=== PATIENT | female | born 1940 | race Caucasian/White ===

== ENCOUNTER 2019-11-16 08:56 | Outpatient (RCR) | payer OTHER, SELFPAY ==
[2019-11-18 06:49] LABS: LDL Cholesterol Direct 73 mg/dL
[2019-11-18 07:24] LABS: Vitamin D 25 Hydroxy 51.4 ng/mL
[2019-11-18 07:55] LABS: Cholesterol 126 mg/dL (0-200); HDL Direct 35 mg/dL; Triglycerides 83 mg/dL (<150)
== END 2020-02-14 23:59 | disposition home or self-care (01) ==
LOC: CAMBRIDGE 08:56
PROVIDERS: Visit Provider Student in an Organized Health Care Education/Training Program
DX: E78.5 Hyperlipidemia, unspecified (principal); E55.9 Vitamin D deficiency, unspecified
CPT/HCPCS: 36415; 80061; 82306

== ENCOUNTER 2020-04-15 22:39 | Inpatient (IN) | payer OTHER, MEDICAID, SELFPAY ==
--- NOTE | ~2020-04-15 | XR_ITS ---
EXAMINATION: XR elbow RT min 3V EXAM DATE: 04/17/2020 08:44 INDICATION: Initial encounter following injury, with pain of the right elbow. TECHNIQUE: Right elbow frontal, lateral with flexion, and oblique projections obtained and reviewed. There is no prior study for comparison. FINDINGS: Exam is limited from patient positioning. No definite acute fracture. There is sequela fro m prior right epicondylar injury. Can't evaluate for joint effusion. IMPRESSION: Limited exam without acute fracture line suspected. Reviewed, dictated and finalized at location A.
--- NOTE | ~2020-04-15 | XR_ITS ---
XR chest 1V portable DATE: 04/15/2020 23:09 INDICATION: Hip and shoulder fractures. TECHNIQUE: Portable AP chest on 04/15/2020 at 2259 hours COMPARISON: 03/29/2013 AP and lateral chest FINDINGS: Bilateral hyperinflation. Mild bilateral apical capping. No pulmonary infiltrate or consoli dation, pleural effusion or pulmonary vascular congestion or pneumothorax. No hilar or mediastinal en largement. Heart size is normal. There is aortic calcification, ectasia and mild unfolding. Right surgical neck humeral fracture. Osteopenia. Degenerative change and scoliosis of the thoracic spine IMPRESSION: Right surgical neck humeral fracture No active cardiac pulmonary disease Aortic atherosclerosis Reviewed, dictated and finalized at location A.
--- NOTE | ~2020-04-15 | XR_ITS ---
XR shoulder RT min 2V DATE: 04/15/2020 23:10 INDICATION: Fall. Right shoulder pain. TECHNIQUE: 2 views COMPARISON: None FINDINGS: There is a mildly superomedially displaced transverse surgical neck fracture of the right h umerus. . Normal alignment at the acromion clavicular and glenohumeral joints. Osteopenia. IMPRESSION: Right surgical neck humeral fracture Reviewed, dictated and finalized at location A.
--- NOTE | ~2020-04-15 | XR_ITS ---
XR ankle LT min 3V DATE: 04/15/2020 23:09 INDICATION: Lateral ankle pain, swelling following a fall TECHNIQUE: 3 views COMPARISON: None FINDINGS: There is mild to moderate lateral soft tissue swelling. There is evidence of a minimally di splaced recent fracture near the tip of the lateral malleolus . The medial and posterior malleoli appear intact. Plantar and posterior calcaneal enthesopathy. IMPRESSION: Lateral malleolar fracture Reviewed, dictated and finalized at location A. IMPRESSION: Lateral malleolar fracture
--- NOTE | ~2020-04-15 | XR_ITS ---
XR hip RT 2V w AP pelvis DATE: 04/15/2020 23:09 INDICATION: Fall. Right hip pain. TECHNIQUE: AP pelvis. AP, lateral, crosstable lateral views of right hip COMPARISON: None FINDINGS: There is an intra-articular fracture of the proximal right femur with minimal displacement, with varus angulation. Diffuse osteopenia. The pubic symphysis and sacroiliac joints are intact. No pelvic fracture or bone destruction is evide nt. 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 Transitional lumbosacral vertebra. IMPRESSION: Right intertrochanteric hip fracture Reviewed, dictated and finalized at location A.
--- NOTE | ~2020-04-15 | XR_ITS ---
XR surgery orthopedic DATE: 04/16/2020 10:24 INDICATION: ORIF right intertrochanteric hip fracture TECHNIQUE: Intraoperative spot C-arm images in AP and lateral projections 49.2 seconds fluoroscopy time [id number] COMPARISON: 04/15/2020 right FINDINGS: Compression screw device and intramedullary adalgisa are placed in the proximal right femur, pro viding near-anatomic position and alignment at the intertrochanteric hip fracture, with correction of varus angulation. IMPRESSION: Status post ORIF right intertrochanteric hip fracture Reviewed, dictated and finalized at Location A. Reviewed, dictated and finalized at location A.
[2020-04-15 22:40] VITALS: BP 155/73; PULSE 57; RESP 20; TEMP 36.8; O2SAT 100
--- NOTE | 2020-04-15 22:43 | ECG_ITS ---
Measurements Intervals [place] Rate: 59 P: OR: 0 QRS: 64 QRSD: 108 T: 51 QT: 442 QTc: 441 Interpretive Statements ECTOPIC ATRIAL BRADYCARDIA INCOMPLETE RIGHT BUNDLE BRANCH BLOCK BASELINE ARTIFACT- II, III, AVF, V2-V6 ABNORMAL ECG Electronically Signed On 04-16-2020 7:21:42 CDT by Oliver Watson D.O.
--- NOTE | 2020-04-15 22:47 | ED.FALL ---
HPI - Fall General Chief Complaint: Fall Stated Complaint: fall Time Seen by Provider: 04/15/20 22:43 History of Present Illness HPI Narrative: She tried to get up from her chair and her left ankle twisted under her. She then fell onto her right hip and outstretched right arm. She now has severe pain in the right hip associated with shortening and rotation. of the leg. She also has severe pain in the right shoulder and limited range of motion. In addition she has moderate pain in the left ankle. She did not hit her head or sustain any additional injuries in the fall. Related Data Home Medications Medication Instructions Recorded Confirmed donepezil 5 mg PO HS 04/15/20 04/15/20 ergocalciferol (vitamin D2) 1,250 mcg PO WEEKLY 04/15/20 04/15/20 [Vitamin D2] pravastatin 40 mg PO HS 04/15/20 04/15/20 sertraline 25 mg PO DAILY 04/15/20 04/15/20 Allergies Allergy/AdvReac Type Severity Reaction Status Date / Time No Known Allergies Allergy Unknown Verified 09/10/19 16:13 Review of Systems Review of Systems: All systems reviewed & are unremarkable except as noted in HPI and below Constitutional: Constitutional: Denies fever(s) ENT: Denies dizziness Cardiovascular: Cardiovascular: Denies chest pain Respiratory: Respiratory: Denies dyspnea Gastrointestinal: Gastrointestinal: Denies abdominal pain Musculoskeletal: Musculoskeletal: Denies back pain Neurologic: Denies numbness Hematologic/Lymphatic: Hematologic/Lymphatic: Denies easy bleeding and Denies easy bruising PMFSH Past Medical History Medical History Depression Hx of suicide attempt Hyperlipidemia Family History Family History Father Family history of malignant neoplasm Patient's father is Mother Family history of heart disease in male family member before age 55 Patient's mother is Social History Social History Smoking status: Never smoker Alcohol intake: unknown Substance use: never Gender identity (if verbalized by the patient): Female Spiritual care concerns: No Exam Const: General: no acute distress and alert Nutritional Appearance: well nourished Orientation/consciousness: patient oriented x3 HENMT: Head: normal to inspection Resp: Effort & Inspection: normal respiratory effort Auscultation: clear to auscultation bilaterally Cardio: Rate: regular rate Rhythm: regular rhythm Peripheral pulses: Peripheral pulses 2+ throughout Skin: General skin exam: normal color Wounds: no wounds Neuro: General: patient oriented x3, moves all extremities and CN's II-XI intact bilaterally Speech: normal speech Extrem: Other: Tenderness over left lateral ankle. Shortening and external rotation of right leg. tenderness and deformity of the right proximal humerus. Course Vital Signs Vital signs: Vital Signs Temperature 36.8 C 04/15/20 22:40 Pulse Rate 57 L 04/15/20 22:40 Respiratory Rate 20 04/15/20 22:40 Blood Pressure 155/73 H 04/15/20 22:40 Pulse Oximetry 100 04/15/20 22:40 Temperature 36.8 C 04/16/20 00:45 Pulse Rate 55 L 04/16/20 00:45 Respiratory Rate 18 04/16/20 00:45 Blood Pressure 103/51 L 04/16/20 00:45 Pulse Oximetry 98 04/16/20 00:45 MDM - Fall Medical Records Attestation: I reviewed the patient's medical records. Lab Data Attestation: I reviewed the patient's lab results. Result diagrams: 04/15/20 23:17 04/15/20 23:17 Labs: Lab Results 04/15/20 04/15/20 04/15/20 Range/Units 23:17 23:17 23:17 WBC 14.4 H (4.5-10.0) K/mm3 RBC 4.19 L (4.2-5.4) M/mm3 Hgb 12.8 (12.0-15.0) g/dL Hct 37.9 (37.0-47.0) % MCV 90.5 (80-100) fl MCH 30.5 (26-34) pg MCHC 33.8 (32-36) g/dl RDW 11.9 (11.5-14.5) % Plt Coun
[2020-04-15 23:28] VITALS: BP 138/73; PULSE 58; RESP 20; O2SAT 99
[2020-04-15 23:29] LABS: Basophils Absolute Auto 0.1 K/mm3 (0.0-0.1); Basophils Percent Auto 0.5 % (0.2-1.2); Eosinophils Absolute Auto 0.3 K/mm3 (0-0.3); Eosinophils Percent Auto 2.3 % (0-4.4); Hematocrit 37.9 % (37.0-47.0); Hemoglobin 12.8 g/dL (12.0-15.0); Immature Granulocyte Absolute 0.07 K/mm3 (0.00-0.031); Immature Granulocyte Percent A 0.5 % (0-0.5); Lymphocytes Absolute Auto 4.43 K/mm3 (0.9-3.2); Lymphocytes Percent Auto 30.9 % (18.3-44.2); Mean Corpuscular HGB Conc 33.8 g/dl (32-36); Mean Corpuscular Hemoglobin 30.5 pg (26-34); Mean Corpuscular Volume 90.5 fl (80-100); Mean Platelet Volume 10.2 fl (7.4-10.4); Monocytes Absolute Auto 0.8 K/mm3 (0.1-0.6); Monocytes Percent Auto 5.9 % (2.6-8.5); Neutrophils Absolute Auto 8.6 K/mm3 (1.3-6.7); Neutrophils Percent Auto 59.9 % (45.5-73.1); Platelet Count Result 289 k/mm3 (150-375); Red Blood Count 4.19 M/mm3 (4.2-5.4); Red Cell Distribution Width 11.9 % (11.5-14.5); White Blood Count 14.4 K/mm3 (4.5-10.0)
[2020-04-15 23:36] LABS: Add Urine Microscopic? YES; Appearance Urine Clear (Clear); Bilirubin Urine Negative (Negative); Blood Urine Negative (Negative); Color Urine Yellow (Yellow); Glucose Urine UA Negative (Negative); Ketones Urine Negative (Negative); Leukocyte Esterase Ur Negative LEU/UL (Negative); Mucus Urine Rare /lpf; Nitrate Urine Negative (Negative); Protein Urine Negative (Negative); RBC Urine 0-2 /hpf (0-2); Specific Grav Ur 1.021 (1.001-1.035); Squamous Epithelial Cell Urine Rare /hpf (Few); Urobilinogen Urine Negative mg/dL (<2.0); WBC Urine 0-3 /hpf
[2020-04-15 23:42] LABS: Blood Urea Nitrogen 15 mg/dL (7-17); Calcium 9.3 mg/dL (8.4-10.2); Carbon Dioxide 26 mmol/L (22-30); Chloride 99 mmol/L (98-107); Estimated Glomerular Filt Rate > 60; Glucose 110 mg/dL (65-105); Potassium 3.5 mmol/L (3.4-5.0); Sodium 137 mmol/L (137-145)
[2020-04-16] VITALS (15 sets, daily range): BP systolic 103–129; BP diastolic 51–73; PULSE 55–75; RESP 10–20; TEMP 36.6–37.1; O2SAT 93–100; BMI 24.3
--- NOTE | 2020-04-16 00:09 | PC.NURSE ---
call receive from pt son. Updates given
[2020-04-16 00:59] LABS: Prothrombin Time 12.9 Seconds (11.1-14.7)
[2020-04-16 01:00] LABS: Partial Thromboplastin Time 29.2 SECONDS (22.3-36.8)
[2020-04-16] MEDS: LACTATED RINGERS 1,000 ML 125 ML IV CONT (01:12)
--- NOTE | 2020-04-16 01:14 | ADMGEN ---
This patient, Nano Rojas, was admitted to 3 Med Surg Room 321-01. Patient/family oriented to hospital policies and general routines including ID bracelet, bed and alarms, visiting hours, pain management, procedures, bathroom and other care routines, personal items, smoking policy, room service/diet, and visiting hours. Valuables list has been completed. Information on how to activate the Rapid Response Team has been discussed. Patient/Family are encouraged to report perceived risks to care and to ask questions if they do not understand what they are told or what they should do.
[2020-04-16] MEDS: MORPHINE SULFATE 4 MG/ML INJ IV PUSH (02:00)
--- NOTE | 2020-04-16 02:06 | PM.IMHP ---
H&P: HPI History of Present Illness Chief complaint: Hip, humerus, and ankle fracture Narrative: This is a pleasant 79 year old female who is known to have depression with a history of a distant suicide attempt and who presented to the hospital after suffering an acute fall at home tonight. The patient is known to live alone and tonight she was watching television when she wanted to change the channel. She stood up and began to walk towards the television as she changes the channels manually. She remembers that she stopped walking and just froze for a moment before she fell. She doesn't believe that she passed out or had any seizure like activity. She doesn't know if she suffered any head trauma or exactly how she fell. She denies any shortness of breath or chest pain prior to falling. On arrival to the hospital the patient was found to have a right humeral fracture, right hip fracture and left ankle fracture. Currently she is only complaining of right hip pain. She had her left ankle splinted in the ER and Ortho has been consulted by ER provider. On further questioning she denies any focal neurological deficits, fevers, chills, cough, shortness of breath, chest pain, abdominal pain, dysuria, hematuria, diarrhea or other symptoms. Routine labs were obtained and were unremarkable other than leukocytosis. Review of Systems Review of Systems: All systems reviewed & are unremarkable except as noted in HPI and below PMFSH Past Medical History Medical History Dementia Depression Fracture of distal end of left fibula Fracture of proximal end of right humerus Hx of suicide attempt Hyperlipidemia Intertrochanteric fracture of right hip Surgical History Surgical History (Updated 04/16/20 @ 19:41 by Anish Cee MD) Hx of colonoscopy Family History Family History Father Family history of malignant neoplasm Patient's father is Mother Family history of heart disease in male family member before age 55 Patient's mother is Social History Social History Smoking status: Never smoker Alcohol intake: unknown Substance use: never Gender identity (if verbalized by the patient): Female Spiritual care concerns: No Meds Home Medications and Allergies Home Medications Medication Instructions Recorded Confirmed Type donepezil 5 mg PO HS 04/15/20 04/15/20 History ergocalciferol (vitamin D2) 1,250 mcg PO WEEKLY 04/15/20 04/15/20 History [Vitamin D2] pravastatin 40 mg PO HS 04/15/20 04/15/20 History sertraline 25 mg PO DAILY 04/15/20 04/15/20 History Allergies Allergy/AdvReac Type Severity Reaction Status Date / Time No Known Allergies Allergy Unknown Verified 09/10/19 16:13 Vital Signs Vital Signs - 24 hr 04/15/20 22:40 04/15/20 23:28 04/16/20 00:10 Temperature 36.8 C Pulse Rate 57 L 58 L 57 L Respiratory Rate 20 20 20 Blood Pressure 155/73 H 138/73 114/73 Pulse Oximetry 100 99 98 04/16/20 00:41 04/16/20 00:45 Temperature 36.8 C Pulse Rate 55 L 55 L Respiratory Rate 20 18 Blood Pressure 114/73 103/51 L Pulse Oximetry 100 98 Exam Const: General: cooperative, alert and awake Nutritional Appearance: well nourished Orientation/consciousness: patient oriented x3 HENMT: Head: normal to inspection General nose exam: Normal external nose present Face and sinus: normal facial exam Mouth: Yes Normal oral and palatal mucosa present and Yes oropharynx normal Eyes: Pupils: Equal, round and reactive pupils present EOM: EOMs intact bilaterally Neck: Neck: supple and no JVD Thyroid: thyroid normal Lymphatic: lymphadenopathy not noted Resp: Effort & Inspection: normal respiratory effort Auscultation: clear to auscultation bilaterally Cardio: Rate: regular rate Rhythm: regular rhy
[2020-04-16] MEDS: SODIUM CHLORIDE 0.9% IV 1,000 ML 75 ML IV CONT (02:42)
[2020-04-16] MEDS: DONEPEZIL HCL 5 MG TABLET PO ×2 (04:56→20:09)
[2020-04-16] MEDS: PRAVASTATIN SODIUM 20 MG TABLET 40 MG PO ×2 (04:56→20:09)
--- NOTE | 2020-04-16 08:04 | WPDANESEPP ---
Anes - Eval Pre Procedure Date/Time: 04/16/20 08:04 Surgeon: alexandre Preop Diagnosis: right IT fracture Pre Op Diagnosis: Hip, humerus, and ankle fracture Patient Data Age: 79 Gender: F Height: 1.68 m Weight: 68.2 kg Last Vital Signs Temp 36.6 C 04/16/20 06:00 Pulse 60 04/16/20 06:00 Resp 18 04/16/20 06:00 BP 109/62 04/16/20 06:00 Pulse Ox 100 04/16/20 06:00 Allergies Allergy/AdvReac Type Severity Reaction Status Date / Time No Known Allergies Allergy Unknown Verified 09/10/19 16:13 Home Medications Medication Instructions Recorded Confirmed Type donepezil 5 mg PO HS 04/15/20 04/15/20 History ergocalciferol (vitamin D2) 1,250 mcg PO WEEKLY 04/15/20 04/15/20 History [Vitamin D2] pravastatin 40 mg PO HS 04/15/20 04/15/20 History sertraline 25 mg PO DAILY 04/15/20 04/15/20 History Laboratory Tests 04/15/20 04/15/20 04/15/20 23:17 23:17 23:17 WBC 14.4 K/mm3 H K/mm3 (4.5-10.0) RBC 4.19 M/mm3 L M/mm3 (4.2-5.4) Hgb 12.8 g/dL g/dL (12.0-15.0) Hct 37.9 % % (37.0-47.0) MCV 90.5 fl fl (80-100) MCH 30.5 pg pg (26-34) MCHC 33.8 g/dl g/dl (32-36) RDW 11.9 % % (11.5-14.5) Plt Count 289 k/mm3 k/mm3 (150-375) MPV 10.2 fl fl (7.4-10.4) Immature Gran % (Auto) 0.5 % % (0-0.5) Neut % (Auto) 59.9 % % (45.5-73.1) Lymph % (Auto) 30.9 % % (18.3-44.2) [place] % (Auto) 5.9 % % (2.6-8.5) Eos % (Auto) 2.3 % % (0-4.4) Baso % (Auto) 0.5 % % (0.2-1.2) Lymph # (Auto) 4.43 K/mm3 H K/mm3 (0.9-3.2) [place] # (Auto) 0.8 K/mm3 H K/mm3 (0.1-0.6) Eos # (Auto) 0.3 K/mm3 K/mm3 (0-0.3) Baso # (Auto) 0.1 K/mm3 K/mm3 (0.0-0.1) Abs Immat Gran (auto) 0.07 K/mm3 H K/mm3 (0.00-0.031) Absolute Neuts (auto) 8.6 K/mm3 H K/mm3 (1.3-6.7) Absolute Nucleated RBC 0.0 K/mm3 K/mm3 (0.0-0.012) Nucleated RBC % 0.0 % % (0.0-0.2) PT 12.9 Seconds Seconds (11.1-14.7) INR 1.0 APTT 29.2 SECONDS SECONDS (22.3-36.8) Sodium 137 mmol/L mmol/L (137-145) Potassium 3.5 mmol/L mmol/L (3.4-5.0) Chloride 99 mmol/L mmol/L (98-107) Carbon Dioxide 26 mmol/L mmol/L (22-30) BUN 15 mg/dL mg/dL (7-17) Creatinine 0.80 mg/dL mg/dL (0.7-1.0) Estim Creat Clear Calc Not Reportable Estimated GFR > 60 (59 - ) Glucose 110 mg/dL H mg/dL (65-105) Calcium 9.3 mg/dL mg/dL (8.4-10.2) Urine Color Urine Appearance Urine pH Ur Specific [place] Urine Protein Urine Glucose (UA) Urine Ketones Ur Blood (Man) Urine Nitrate Urine Bilirubin Urine Urobilinogen Leukocyte Esterase Rfl Urine RBC Urine WBC Ur Squamous Epith Cells Urine Mucus 04/15/20 23:17 WBC RBC Hgb Hct MCV MCH MCHC RDW Plt Count MPV Immature Gran % (Auto) Neut % (Auto) Lymph % (Auto) [place] % (Auto) Eos % (Auto) Baso % (Auto) Lymph # (Auto) [place] # (Auto) Eos # (Auto) Baso # (Auto) Abs Immat Gran (auto) Absolute Neuts (auto) Absolute Nucleated RBC Nucleated RBC % PT INR APTT Sodium Potassium Chloride Carbon Dioxide BUN Creatinine Estim Creat Clear Calc Estimated GFR Glucose Calcium Urine Color Yellow (Yellow) Urine Appearance Clear (Clear) Urine pH 5.0 (5.0-9.0) Ur Specific [place] 1.021 (1.001-1.035) Urine Protein Negative
--- NOTE | 2020-04-16 08:13 | PM.CNOR ---
Assessment and Plan Assessment and plan (1) Intertrochanteric fracture of right hip: Qualifiers: Encounter type: initial encounter Fracture type: closed Fracture alignment: displaced Qualified Code(s): S72.141A - Displaced intertrochanteric fracture of right femur, initial encounter for closed fracture Code(s): S72.141A - Displaced intertrochanteric fracture of right femur, initial encounter for closed fracture Status: Acute Assessment and Plan: New patient evaluation for chief complaint fall with fractures of the right shoulder, right hip, left ankle. History, physical exam and radiographs reviewed with the patient. Discussed the condition, nature, etiology and course of natural history with the patient. Treatment options including surgical and nonoperative treatment were reviewed. Risks and benefits of each as well as alternatives reviewed. The patient's questions were answered. Conservative treatment ice, compression and elevation. Patient desires operative treatment for the hip fracture Discussed nonoperative and operative treatment options with the patient. Risks and benefits of each as well as alternatives were reviewed. All of the patient's questions were answered. The risks of surgery reviewed including but not limited to: Neurovascular damage, wound complication, infection, blood clot, pulmonary embolus, stroke, myocardial infarction, and anesthetic risks up to and including . Continued pain and possible dysfunction were explained. Specific risks of the procedure including later recurrence of deformity. No guarantees were offered. If hardware used, discussed risk of failure/ breakage and possible need for removal. If complications occur, the patient understands the need for further treatment, possible further surgery. Patient verbalizes understanding and wishes to proceed. PLAN: Right hip intramedullary nail with hip screw (2) Fracture of distal end of left fibula: Qualifiers: Encounter type: initial encounter Fracture type: closed Fracture morphology: other fracture Qualified Code(s): S82.832A - Other fracture of upper and lower end of left fibula, initial encounter for closed fracture Code(s): S82.832A - Other fracture of upper and lower end of left fibula, initial encounter for closed fracture Status: Acute Assessment and Plan: New patient evaluation status post injury. The history, physical exam and radiographs reviewed with the patient. Type of fracture discussed in detail . Treatment options including operative and non operative treatment reviewed . Risks, benefits and alternatives of each treatment discussed in detail . The patient has declined surgical treatment. Risks of treatment decision discussed in detail. Potential problems with displacement of the fracture, loss of alignment, nonunion, malunion and dysfunction discussed in detail. The patient's questions were answered. They verbalized understanding and agreement. Conservative treatment with immobilization, ice , compression and elevation. Ankle splinted in the emergency room. Continue with nonweightbearing. (3) Fracture of proximal end of right humerus: Qualifiers: Encounter type: initial encounter Fracture type: closed Fracture morphology: other fracture Fracture alignment: displaced Qualified Code(s): S42.291A - Other displaced fracture of upper end of right humerus, initial encounter for closed fracture Code(s): S42.201A - Unspecified fracture of upper end of right humerus, initial encounter for closed fracture Status: Acute Assessment and Plan: New patient evaluation status post injury. The history, physical exam and radiographs reviewed with the patient. Type of fracture discussed in detail . Treatment options including operative and non operative treatment reviewed . Risks, benefits and alternatives of each treatment discussed in detail . The pat
--- NOTE | 2020-04-16 08:53 | WPDANESEFPP ---
Anes - Eval Final PreProcedure Day of Procedure 04/16/20 08:53 Patient weight: normal Heart: regular rate and rhythm Lungs: clear to auscultation Airway: Mallampati scale class II Neurological: confused Last oral intake: >/= 8 hours ASA classification: III Emergent: yes Anesthetic plan: proceed Anesthesia type and monitoring: general LMA and standard monitoring Informed Consent: The patient's anesthetic plan and its attendant risks and benefits were discussed with the patient/family/POA. Questions were solicited and answers provided to the satisfaction of the patient/family/POA.
[2020-04-16] MEDS: LACTATED RINGERS 1,000 ML 30 ML IV CONT ×2 (09:15→10:41)
[2020-04-16] MEDS: ceFAZolin 2 GM/D5W 50 ML 2 GM/50 ML BAG IVPB (09:20)
[2020-04-16] MEDS: BUPIVACAINE/EPINEPHRINE 0.5% 30 ML VIAL INFILTRATE (09:56)
--- NOTE | 2020-04-16 10:46 | P.OP_ITS ---
Procedure Note - Detailed Date of procedure: 04/16/20 Pre-op diagnosis: Hip, humerus, and ankle fracture RT hip IT fx Post-op diagnosis: same Procedure performed: ERT Hip [facility] Description of procedure: Implants used: Aureliano natural nail 11.5 millimeter diameter 21.5 centimeter length nail, 125 deg. lag screw 10.5 millimeter x 90millimeter length. 35mm locking screw INDICATIONS: This is an 79-year-old -woman who fell sustaining a right hip intertrochanteric femur fracture. Indicated for reduction and intramedullary hip screw fixation, right hip. DESCRIPTION OF PROCEDURE: After informed consent the operative extremity was marked in the preoperative holding area. Patient received intravenous antibiotics. The patient was taken to the operative room, placed in the supine position, general anesthesia induced by the anesthesia team, and was placed on a fracture table with longitudinal traction applied to the right leg. The hip fracture was reduced to near anatomic position and verified with image intensification. A time-out was performed confirming the patient, site of the surgery and plan. The right lower extremity was prepped and draped sterilely from the knee to the iliac crest region using a ChloraPrep skin solution. Incision was made just proximal to greater trochanter down to the subcutaneous tissues. Hemostasis controlled with electrocautery. Blunt dissection through the fascia to the tip of the greater trochanter. A starter awl was placed at the tip of the greater trochanter into the medullary canal of the femur. This was checked with image intensification and was in good position. Intramedullary guide adalgisa positioned. A one-step hand reaming done proximally. Intramedullary canal was reamed with a 12.5 millimeter flexible reamer. Neck angle selected off of preoperative radiographs temp plating. 1 degree 11.5mm X 21.5cm Nail opened on the back table and assembled. This was then inserted over the guide adalgisa to the correct depth. Guide adalgisa removed. Lag screw was then placed with a stab incision over the lateral femur using a 10 blade knife. Blunt dissection down to the lateral side of the bone. Soft tissue protectors placed. Guide pin placed in the center ce nter position of the femoral head and measured. 90millimeter x 10.5 millimeter lag screw placed to correct depth and verified with image intensification. Traction released from the leg and compression of the fracture performed with the external compression device. Proximal locking screw placed. Distal locking of the nail then performed. Stab incision made lateral distal thigh. Blunt dissection down lateral side of the femur. Soft tissue protector placed. Femur drilled from lateral to medial through the distal nail. Distal femur measured and the appropriate size screw placed. Image intensification confirmed the placement through the locking hole. Final image intensification confirmed reduction of the fracture and placement of the hardware. Wounds then thoroughly irrigated with antibiotic solution. Fascia repaired with 0 Vicryl interrupted suture. Subcutaneous tissue repaired with 00 Vicryl interrupted suture and skin repaired with dee dee. Sterile dressings applied. Patient then awoke from anesthesia, extubated, taken to recovery room stable condition. All sponge, needle and instrument counts correct at the end the case. Implants: Aureliano 125 deg nail, 90mmX 10.5 mm lag screw, 35 x 5 mm locking screw Anesthesia: GLMA Surgeon: Marshall Chambers MD Pediatric Critical Care Nurse: ! chef's assistant Estimated blood loss (mL): 200 Drains: No Packing: No Pathology: none sent Complications: None Condition: stable Disposition: PACU
--- NOTE | 2020-04-16 14:27 | PM.IMPN ---
Progress Note: A&P Assessment and Plan (1) Intertrochanteric fracture of right hip: Qualifiers: Encounter type: initial encounter Fracture alignment: displaced Fracture type: closed Qualified Code(s): S72.141A - Displaced intertrochanteric fracture of right femur, initial encounter for closed fracture Code(s): S72.141A - Displaced intertrochanteric fracture of right femur, initial encounter for closed fracture Status: Acute Assessment and Plan: Hip and pelvis xray revealed an intra-articular fracture of the proximal right femur with minimal displacement and varus angulation. Dr. Chambers with ortho is on board and the patient opted for surgical management. She underwent reduction and intramedullary hip screw fixation today (04/16/2020) by Dr. Chambers. She tolerated the procedure well and is recovering appropriately. Her pain is well-controlled. Continue management per ortho including weight bearing status, DVT prophylaxis, and pain management She is on xarelto for DVT prophylaxis per ortho (2) Fracture of distal end of left fibula: Qualifiers: Encounter type: initial encounter Fracture morphology: other fracture Fracture type: closed Qualified Code(s): S82.832A - Other fracture of upper and lower end of left fibula, initial encounter for closed fracture Code(s): S82.832A - Other fracture of upper and lower end of left fibula, initial encounter for closed fracture Status: Acute Assessment and Plan: Ankle xray revealed a left lateral malleolar fracture. She discussed this with ortho and opted for non-operative management. Continue management per ortho Continue conservative treatment with immobilization, ice, compression and elevation Her left ankle was splinted in the emergency room She is nonweightbearing per ortho (3) Fracture of proximal end of right humerus: Qualifiers: Encounter type: initial encounter Fracture alignment: displaced Fracture morphology: other fracture Fracture type: closed Qualified Code(s): S42.291A - Other displaced fracture of upper end of right humerus, initial encounter for closed fracture Code(s): S42.201A - Unspecified fracture of upper end of right humerus, initial encounter for closed fracture Status: Acute Assessment and Plan: Shoulder xray revealed a mildly superomedially displaced transverse surgical neck fracture of the right humerus during her fall. She discussed this with ortho and opted for non-operative management. She reports that her pain is well-controlled. Continue management per ortho Continue conservative treatment with immobilization, ice, compression, and elevation Continue sling immobilization (4) Osteopenia determined by x-ray: Code(s): M85.80 - Other specified disorders of bone density and structure, unspecified site Status: Acute Assessment and Plan: Plain films reveal osteopenia. Continue PO vitamin D supplementation Will check vitamin D level She will benefit from further evaluation outpatient and DEXA scan if not already performed (5) Depression: Qualifiers: Active/Remission status: remission status unspecified Depression Type: major depressive disorder Major depression recurrence: unspecified whether recurrent Qualified Code(s): F32.9 - Major depressive disorder, single episode, unspecified Code(s): F32.9 - Major depressive disorder, single episode, unspecified Status: Chronic Assessment and Plan: Stable. Continue sertraline (6) Hyperlipidemia: Qualifiers: Hyperlipidemia type: unspecified Qualified Code(s): E78.5 - Hyperlipidemia, unspecified Code(s): E78.5 - Hyperlipidemia, unspecified Status: Chronic Assessment and Plan: Continue pravastatin (7) Dementia: Qualifiers: Dementia behavioral disturbance: without behavioral disturba
[2020-04-16] MEDS: DOCUSATE SODIUM 100 MG CAPSULE PO (17:34)
[2020-04-16] MEDS: FAMOTIDINE 20 MG TABLET PO (20:09)
[2020-04-17 02:00] VITALS: BP 109/60; PULSE 67; RESP 18; TEMP 37.2; O2SAT 97
[2020-04-17] MEDS: SODIUM CHLORIDE 0.9% IV 1,000 ML 75 ML IV CONT (04:08)
[2020-04-17 06:00] VITALS: BP 121/60; PULSE 66; RESP 18; TEMP 36.8; O2SAT 98
[2020-04-17 06:23] LABS: Basophils Percent Auto 0.1 % (0.2-1.2); Eosinophils Percent Auto 0.2 % (0-4.4); Hematocrit 26.6 % (37.0-47.0); Immature Granulocyte Absolute 0.05 K/mm3 (0.00-0.031); Immature Granulocyte Percent A 0.5 % (0-0.5); Lymphocytes Absolute Auto 1.59 K/mm3 (0.9-3.2); Lymphocytes Percent Auto 15.2 % (18.3-44.2); Mean Corpuscular HGB Conc 33.8 g/dl (32-36); Mean Corpuscular Hemoglobin 30.1 pg (26-34); Mean Platelet Volume 10.1 fl (7.4-10.4); Monocytes Percent Auto 9.2 % (2.6-8.5); Neutrophils Absolute Auto 7.9 K/mm3 (1.3-6.7); Neutrophils Percent Auto 74.8 % (45.5-73.1); Platelet Count Result 194 k/mm3 (150-375); Red Blood Count 2.99 M/mm3 (4.2-5.4); Red Cell Distribution Width 12.1 % (11.5-14.5); White Blood Count 10.5 K/mm3 (4.5-10.0)
[2020-04-17 06:56] LABS: Blood Urea Nitrogen 8 mg/dL (7-17); Calcium 8.2 mg/dL (8.4-10.2); Carbon Dioxide 26 mmol/L (22-30); Chloride 104 mmol/L (98-107); Estimated CRCL calculation 53 ml/min; Estimated Glomerular Filt Rate > 60; Glucose 113 mg/dL (65-105); Potassium 3.9 mmol/L (3.4-5.0); Sodium 135 mmol/L (137-145)
[2020-04-17 07:27] LABS: Vitamin D 25 Hydroxy 50.9 ng/mL
--- NOTE | 2020-04-17 08:00 | PM.PNORT ---
Progress Note: A&P Assessment and Plan (1) Intertrochanteric fracture of right hip: Qualifiers: Encounter type: subsequent encounter Fracture type: closed Fracture alignment: displaced Fracture healing: with routine healing Qualified Code(s): S72.141D - Displaced intertrochanteric fracture of right femur, subsequent encounter for closed fracture with routine healing Code(s): S72.141A - Displaced intertrochanteric fracture of right femur, initial encounter for closed fracture Status: Acute Assessment and Plan: Postoperative day 1. Right hip intramedullary nail. Patient confused this morning to place and time. Otherwise stable. PT/OT with weight-bearing as tolerated right leg. Will be difficult to mobilize secondary to nonweightbearing left leg and right arm. Pain control while trying to limit narcotics secondary to dementia. Will require placement. (2) Fracture of proximal end of right humerus: Qualifiers: Encounter type: subsequent encounter Fracture type: closed Fracture morphology: other fracture Fracture alignment: displaced Fracture healing: with routine healing Qualified Code(s): S42.291D - Other displaced fracture of upper end of right humerus, subsequent encounter for fracture with routine healing Code(s): S42.201A - Unspecified fracture of upper end of right humerus, initial encounter for closed fracture Status: Acute (3) Fracture of distal end of left fibula: Qualifiers: Encounter type: subsequent encounter Fracture type: closed Fracture morphology: other fracture Fracture healing: with routine healing Qualified Code(s): S82.832D - Other fracture of upper and lower end of left fibula, subsequent encounter for closed fracture with routine healing Code(s): S82.832A - Other fracture of upper and lower end of left fibula, initial encounter for closed fracture Status: Acute Subjective Subjective Date/Time Seen: 04/17/20 08:00 Patient awake and alert. Sitting up in bed. Confused about surgery yesterday, place and time. Exam Const: General: No confusion Orientation/consciousness: patient oriented x3 and No confusion HENMT: Head: normal to inspection, normocephalic and atraumatic Eyes: Conjunctivae: conjunctivae normal Sclera: sclerae normal Neck: Neck: supple and nontender Chest: Chest palpation & inspection: normal inspection of the chest Resp: Effort & Inspection: normal respiratory effort and no audible wheezes Cardio: Rate: regular rate Rhythm: regular rhythm GI: GI Palp: No abdominal tenderness and Yes Soft to palpation : General: Yes deferred Skin: General skin exam: no rashes or lesions noted Neuro: General: patient oriented x3 and No confusion Extrem: General: capillary refill normal Right upper extremity: shoulder/upper arm, elbow/forearm and Extremity exam: right hand Left upper extremity: normal to inspection Right lower extremity: hip/thigh, ankle ( able to actively flex and extend ankle) and foot; abnormal to inspection (Shortened and externally rotated leg) Left lower extremity: hip/thigh, lower leg, ankle (no calf tenderness) and foot Other: Right upper extremity: shoulder/upper arm abnormal to inspection other (Diffuse swelling), tenderness of the proximal humerus and abnormal ROM (Deferred secondary to fracture), elbow/forearm tenderness of the lateral epicondyle and of the radial head and abnormal ROM (Arm in sling); ROM abnormal and Extremity exam: right hand normal to inspection, neuromotor exam normal wrist extension normal, thumb opposition normal, thumb IP flexion normal and fingers 2-5 ABduction normal, neurosensory exam abnormal radial nerve sensory function normal, ulnar nerve sensory function normal, median nerve sensory function normal and digital nerve sensory function normal and vascular exam radial pulse present and normal capillary refill Left upper extremity: normal to inspection Right lowe
[2020-04-17] MEDS: FAMOTIDINE 20 MG TABLET PO ×2 (08:47→21:58)
[2020-04-17] MEDS: SERTRALINE HCL 25 MG TABLET PO (08:47)
[2020-04-17] MEDS: DOCUSATE SODIUM 100 MG CAPSULE PO ×2 (08:47→17:05)
[2020-04-17 09:59] VITALS: BMI 10.0
--- NOTE | 2020-04-17 09:59 | WPDANESPN ---
Anes - Prog Note Post-Op Date/Time: 04/17/20 09:59 Cardiovascular status: normal Respiratory status: normal Airway patency: baseline Mental status: baseline Post-Op hydration status: normal Vital Signs: Last Vital Signs Temp 36.8 C 04/17/20 06:00 Pulse 66 04/17/20 06:00 Resp 18 04/17/20 06:00 BP 121/60 04/17/20 06:00 Pulse Ox 98 04/17/20 06:00 I/O: Intake & Output 04/16/20 04/17/20 04/17/20 23:59 07:59 15:59 Intake Total 530 1399 Output Total 650 1650 Balance -120 -251 Laboratory Tests 04/17/20 06:10 04/17/20 06:10 04/17/20 04/17/20 04/17/20 06:10 06:10 06:10 WBC 10.5 H RBC 2.99 L Hgb 9.0 L D Hct 26.6 L MCV 89.0 MCH 30.1 MCHC 33.8 RDW 12.1 Plt Count 194 MPV 10.1 Immature Gran % (Auto) 0.5 Neut % (Auto) 74.8 H Lymph % (Auto) 15.2 L Jackson % (Auto) 9.2 H Eos % (Auto) 0.2 Baso % (Auto) 0.1 L Lymph # (Auto) 1.59 Jackson # (Auto) 1.0 H Eos # (Auto) 0.0 Baso # (Auto) 0.0 Abs Immat Gran (auto) 0.05 H Absolute Neuts (auto) 7.9 H Absolute Nucleated RBC 0.0 Nucleated RBC % 0.0 Sodium 135 L Potassium 3.9 Chloride 104 Carbon Dioxide 26 BUN 8 D Creatinine 0.70 Estim Creat Clear Calc 53 Estimated GFR > 60 Glucose 113 H Calcium 8.2 L Vitamin D 25-Hydroxy 50.9 Post-procedural complaints: none Patient Feedback: Patient satisfied with anesthetic care. Other Findings: pt still seems confused about what surgery we did, sitting at side of bed, talkative.
[2020-04-17 14:00] VITALS: BP 108/78; PULSE 73; RESP 18; TEMP 36.6; O2SAT 94
--- NOTE | 2020-04-17 15:40 | PM.IMPN ---
Progress Note: A&P Assessment and Plan (1) Intertrochanteric fracture of right hip: Qualifiers: Encounter type: subsequent encounter Fracture type: closed Fracture alignment: displaced Fracture healing: with routine healing Qualified Code(s): S72.141D - Displaced intertrochanteric fracture of right femur, subsequent encounter for closed fracture with routine healing Code(s): S72.141A - Displaced intertrochanteric fracture of right femur, initial encounter for closed fracture Status: Acute Assessment and Plan: Hip and pelvis xray revealed an intra-articular fracture of the proximal right femur with minimal displacement and varus angulation. Dr. Chambers with ortho is on board and the patient opted for surgical management. She underwent reduction and intramedullary hip screw fixation 04/16/[address] Chambers. She continues to work with therapy and her pain is well-controlled. Continue management per ortho including weight bearing status, DVT prophylaxis, and pain management She is on xarelto for DVT prophylaxis per ortho (2) Fracture of distal end of left fibula: Qualifiers: Encounter type: subsequent encounter Fracture type: closed Fracture morphology: other fracture Fracture healing: with routine healing Qualified Code(s): S82.832D - Other fracture of upper and lower end of left fibula, subsequent encounter for closed fracture with routine healing Code(s): S82.832A - Other fracture of upper and lower end of left fibula, initial encounter for closed fracture Status: Acute Assessment and Plan: Ankle xray revealed a left lateral malleolar fracture. She discussed this with ortho and opted for non-operative management. Continue management per ortho Continue conservative treatment with immobilization, ice, compression and elevation Her left ankle was splinted in the emergency room She is nonweightbearing per ortho (3) Fracture of proximal end of right humerus: Qualifiers: Encounter type: subsequent encounter Fracture type: closed Fracture morphology: other fracture Fracture alignment: displaced Fracture healing: with routine healing Qualified Code(s): S42.291D - Other displaced fracture of upper end of right humerus, subsequent encounter for fracture with routine healing Code(s): S42.201A - Unspecified fracture of upper end of right humerus, initial encounter for closed fracture Status: Acute Assessment and Plan: Shoulder xray revealed a mildly superomedially displaced transverse surgical neck fracture of the right humerus during her fall. She discussed this with ortho and opted for non-operative management. She reports that her pain is well-controlled. Continue management per ortho Continue conservative treatment with immobilization, ice, compression, and elevation Continue sling immobilization (4) Osteopenia determined by x-ray: Code(s): M85.80 - Other specified disorders of bone density and structure, unspecified site Status: Acute Assessment and Plan: Plain films reveal osteopenia. Vitamin D level was sufficient at 50.9. Continue PO vitamin D supplementation She will benefit from further evaluation outpatient and DEXA scan if not already performed (5) Depression: Qualifiers: Depression Type: major depressive disorder Major depression recurrence: unspecified whether recurrent Active/Remission status: remission status unspecified Qualified Code(s): F32.9 - Major depressive disorder, single episode, unspecified Code(s): F32.9 - Major depressive disorder, single episode, unspecified Status: Chronic Assessment and Plan: Stable. Continue sertraline (6) Hyperlipidemia: Qualifiers: Hyperlipidemia type: unspecified Qualified Code(s): E78.5 - Hyperlipidemia, unspecified Code(s): E78.5 - Hyperlipidemia, unspecified Status:
[2020-04-17] MEDS: RIVAROXABAN 10 MG TABLET PO (17:05)
[2020-04-17] MEDS: PRAVASTATIN SODIUM 20 MG TABLET 40 MG PO (21:58)
[2020-04-17] MEDS: DONEPEZIL HCL 5 MG TABLET PO (21:58)
[2020-04-17 22:00] VITALS: BP 125/52; PULSE 74; RESP 20; TEMP 36.8; O2SAT 96
--- NOTE | 2020-04-18 | ECHO_ITS ---
Patient Info Name: Nano Rojas Age: 79 years : 1940 Gender: Female Ht: 66 in Wt: 150 lbs BSA: 1.79 m2 HR: 75 bpm BP: 122 / 65 mmHg Heart Rhythm: Sinus Rhythm Technical Quality: Good Exam Date: 04/18/2020 9:31 AM Exam Location: [facility] Patient Status: Inpatient Admit Date: 04/16/2020 Staff Ordering Physician: Katherine Cantrell PA-C Senior Grant Writer: Dinh Meehan RDCS Attending Provider: Alma Armenta PA-C Referring Physician: Óscar SANCHEZ; Exam Type: CA echo doppler color flow Study Info Indications R01.1 - Cardiac murmur, unspecified Complete two-dimensional, color flow and Doppler transthoracic echocardiogram is performed. Strain analysis performed. History/Risk Factors Systolic murmur. Summary 1. Normal LV size, moderate LVH, sigmoid hypertrophy of left ventricle, hyperdynamic LV systolic function, ejection fraction more than 70%; normal diastolic function. Mild mitral annular calcification, trivial MR. Aortic valve sclerosis, mild aortic valve stenosis, aortic valve area 1.8 cm2, V max 2 m/sec, mean gradient 7 mmHg. Mild TR, moderate pulmonary hypertension, RVSP 51 mmHg. Left Ventricle Left ventricular chamber dimension is normal. Left ventricular systolic function is hyperdynamic, estimated at >70%. There is moderately increased left ventricular wall thickness. Left ventricular septal wall motion is normal. The left ventricular diastolic function is normal. Right Ventricle Right ventricular chamber dimension is normal. Right ventricular systolic function is normal. Left Atria Left atrial chamber dimension is normal. Right Atria Right atrial chamber dimension is normal. Aortic Valve The aortic valve is trileaflet. There is mild aortic valve sclerosis. There is mild aortic valve stenosis with a peak velocity of 201 cm/s, mean gradient of 7 mmHg, and aortic valve area of 1.8 cm2. There is no aortic valve regurgitation. Pulmonic Valve The pulmonic valve is not well visualized. There is no pulmonic regurgitation. Mitral Valve The mitral valve has normal leaflets. There is no mitral valve stenosis. There is trace mitral valve regurgitation. The mitral valve annulus is mildly calcified. Tricuspid Valve The tricuspid valve leaflets are normal. There is mild tricuspid valve regurgitation. Moderate pulmonary hypertension, estimated pulmonary arterial systolic pressure is 51 mmHg. Pericardium/Pleural The pericardium appears epicardial fat pad. There is no pericardial effusion. Aorta The aortic root size at the sinus of Valsalva is normal. The prox ascending aorta size is normal. Left Ventricular Outflow Tract Name Value Normal LVOT 2D LVOT Diameter 1.8 cm LVOT Doppler LVOT Peak Gradient 6 mmHg LVOT Mean Gradient 3 mmHg LVOT VTI 25 cm LVOT VTI/AV VTI Ratio 0.7 LVOT Stroke Volume 66 ml LVOT CO 4.9 l/min LVOT CI
[2020-04-18 06:00] VITALS: BP 122/65; PULSE 76; RESP 18; TEMP 36.2; O2SAT 95
[2020-04-18 06:00] LABS: Hematocrit 25.6 % (37.0-47.0); Hemoglobin 8.7 g/dL (12.0-15.0); Mean Corpuscular Hemoglobin 31.1 pg (26-34); Mean Corpuscular Volume 91.4 fl (80-100); Mean Platelet Volume 9.9 fl (7.4-10.4); Platelet Count Result 186 k/mm3 (150-375); Red Cell Distribution Width 12.2 % (11.5-14.5); White Blood Count 10.1 K/mm3 (4.5-10.0)
[2020-04-18 06:16] LABS: Alanine Aminotransferase 10 U/L (4-35); Albumin Level 3.2 g/dL (3.5-5.1); Alkaline Phosphatase 53 U/L (38-126); Aspartate Amino Transferase 28 U/L (14-36); Bilirubin,Total 0.5 mg/dL (0.2-1.3); Blood Urea Nitrogen 10 mg/dL (7-17); Calcium 8.1 mg/dL (8.4-10.2); Carbon Dioxide 29 mmol/L (22-30); Chloride 102 mmol/L (98-107); Estimated CRCL calculation 53 ml/min; Estimated Glomerular Filt Rate > 60; Glucose 107 mg/dL (65-105); Magnesium 1.8 mg/dL (1.6-2.3); Potassium 3.7 mmol/L (3.4-5.0); Sodium 138 mmol/L (137-145)
--- NOTE | 2020-04-18 08:02 | PM.PNORT ---
Progress Note: A&P Assessment and Plan (1) Intertrochanteric fracture of right hip: Qualifiers: Encounter type: subsequent encounter Fracture type: closed Fracture alignment: displaced Fracture healing: with routine healing Qualified Code(s): S72.141D - Displaced intertrochanteric fracture of right femur, subsequent encounter for closed fracture with routine healing Code(s): S72.141A - Displaced intertrochanteric fracture of right femur, initial encounter for closed fracture Status: Acute Assessment and Plan: Postoperative day 2. Right hip intramedullary nail. Patient less confused this morning. Oriented to self and place. Otherwise stable. PT/OT with weight-bearing as tolerated right leg. Will be difficult to mobilize secondary to nonweightbearing left leg and right arm. Pain control while trying to limit narcotics secondary to dementia. Will require placement. (2) Fracture of proximal end of right humerus: Qualifiers: Encounter type: subsequent encounter Fracture type: closed Fracture morphology: other fracture Fracture alignment: displaced Fracture healing: with routine healing Qualified Code(s): S42.291D - Other displaced fracture of upper end of right humerus, subsequent encounter for fracture with routine healing Code(s): S42.201A - Unspecified fracture of upper end of right humerus, initial encounter for closed fracture Status: Acute (3) Fracture of distal end of left fibula: Qualifiers: Encounter type: subsequent encounter Fracture type: closed Fracture morphology: other fracture Fracture healing: with routine healing Qualified Code(s): S82.832D - Other fracture of upper and lower end of left fibula, subsequent encounter for closed fracture with routine healing Code(s): S82.832A - Other fracture of upper and lower end of left fibula, initial encounter for closed fracture Status: Acute Subjective Subjective Date/Time Seen: 04/18/20 08:02 patient awake and alert. Less confusion. Oriented to person and place. Exam Const: General: cooperative, no acute distress, awake and confusion Orientation/consciousness: oriented to person, oriented to place and confusion HENMT: Head: normal to inspection, normocephalic and atraumatic Eyes: Conjunctivae: conjunctivae normal Sclera: sclerae normal Neck: Neck: supple and nontender Chest: Chest palpation & inspection: normal inspection of the chest Resp: Effort & Inspection: normal respiratory effort and no audible wheezes Cardio: Rate: regular rate Rhythm: regular rhythm GI: GI Palp: No abdominal tenderness and Yes Soft to palpation : General: Yes deferred Skin: General skin exam: no rashes or lesions noted Neuro: General: patient oriented x3 and No confusion Extrem: General: capillary refill normal Right upper extremity: shoulder/upper arm, elbow/forearm and Extremity exam: right hand Left upper extremity: normal to inspection Right lower extremity: hip/thigh, ankle ( able to actively flex and extend ankle) and foot; abnormal to inspection (Shortened and externally rotated leg) Left lower extremity: hip/thigh, lower leg, ankle (no calf tenderness) and foot Other: Right upper extremity: shoulder/upper arm abnormal to inspection other (Diffuse swelling), tenderness of the proximal humerus and abnormal ROM (Deferred secondary to fracture), elbow/forearm tenderness of the lateral epicondyle and of the radial head and abnormal ROM (Arm in sling); ROM abnormal and Extremity exam: right hand normal to inspection, neuromotor exam normal wrist extension normal, thumb opposition normal, thumb IP flexion normal and fingers 2-5 ABduction normal, neurosensory exam abnormal radial nerve sensory function normal, ulnar nerve sensory function normal, median nerve sensory function normal and digital nerve sensory function normal and vascular exam radial pulse present and normal capillary refill Left up
[2020-04-18] MEDS: FAMOTIDINE 20 MG TABLET PO ×2 (08:46→20:45)
[2020-04-18] MEDS: DOCUSATE SODIUM 100 MG CAPSULE PO ×2 (08:46→16:15)
[2020-04-18] MEDS: SERTRALINE HCL 25 MG TABLET PO (08:46)
--- NOTE | 2020-04-18 10:17 | PM.IMPN ---
Progress Note: A&P Assessment and Plan (1) Intertrochanteric fracture of right hip: Qualifiers: Encounter type: subsequent encounter Fracture alignment: displaced Fracture healing: with routine healing Fracture type: closed Qualified Code(s): S72.141D - Displaced intertrochanteric fracture of right femur, subsequent encounter for closed fracture with routine healing Code(s): S72.141A - Displaced intertrochanteric fracture of right femur, initial encounter for closed fracture Status: Acute Assessment and Plan: Hip and pelvis xray revealed an intra-articular fracture of the proximal right femur with minimal displacement and varus angulation. Orthopedics is on board. She underwent reduction and intramedullary hip screw fixation 04/16/[address] Chambers. She continues to work with therapy and her pain is well-controlled. She is post-op day 2 Continue management per ortho including weight bearing status, DVT prophylaxis, and pain management She is on xarelto for DVT prophylaxis per ortho Care coordination consult to determine placement for continued therapy at discharge (2) Fracture of distal end of left fibula: Qualifiers: Encounter type: subsequent encounter Fracture healing: with routine healing Fracture morphology: other fracture Fracture type: closed Qualified Code(s): S82.832D - Other fracture of upper and lower end of left fibula, subsequent encounter for closed fracture with routine healing Code(s): S82.832A - Other fracture of upper and lower end of left fibula, initial encounter for closed fracture Status: Acute Assessment and Plan: Ankle xray revealed a left lateral malleolar fracture. She discussed this with ortho and opted for non-operative management. Continue management per ortho Continue conservative treatment with immobilization, ice, compression and elevation Her left ankle was splinted in the emergency room She is non-weight bearing per ortho (3) Fracture of proximal end of right humerus: Qualifiers: Encounter type: subsequent encounter Fracture alignment: displaced Fracture healing: with routine healing Fracture morphology: other fracture Fracture type: closed Qualified Code(s): S42.291D - Other displaced fracture of upper end of right humerus, subsequent encounter for fracture with routine healing Code(s): S42.201A - Unspecified fracture of upper end of right humerus, initial encounter for closed fracture Status: Acute Assessment and Plan: Shoulder xray revealed a mildly superomedially displaced transverse surgical neck fracture of the right humerus during her fall. She discussed this with ortho and opted for non-operative management. Right elbow XR is negative for fracture or acute changes. She reports that her pain is well-controlled. Continue management per ortho Continue conservative treatment with immobilization, ice, compression, and elevation Continue sling immobilization (4) Osteopenia determined by x-ray: Code(s): M85.80 - Other specified disorders of bone density and structure, unspecified site Status: Acute Assessment and Plan: Plain films reveal osteopenia. Vitamin D level was sufficient at 50.9. Continue PO vitamin D supplementation She will benefit from further evaluation outpatient and DEXA scan if not already performed (5) Normocytic anemia: Code(s): D64.9 - Anemia, unspecified Status: Acute Assessment and Plan: At presentation, Hgb 12.8 and Hct 37.9. Levels declined post-operatively and today Hgb is 8.7 and Hct is 25.6. I suspect this is related to acute surgical blood loss. There are no obvious signs of bleeding or hematoma on exam, she denies any blood loss, and her vitals are stable. Continue to monitor H&H and transfuse as needed (6) Depression: Qualifiers: Active/Remission status: remission status unspecif
[2020-04-18 14:00] VITALS: BP 125/64; PULSE 72; RESP 16; TEMP 36.8; O2SAT 100
[2020-04-18] MEDS: RIVAROXABAN 10 MG TABLET PO (16:15)
[2020-04-18] MEDS: PRAVASTATIN SODIUM 20 MG TABLET 40 MG PO (20:45)
[2020-04-18] MEDS: DONEPEZIL HCL 5 MG TABLET PO (20:45)
[2020-04-18 22:00] VITALS: BP 128/69; PULSE 72; RESP 16; TEMP 37.1; O2SAT 97
[2020-04-19 06:00] VITALS: BP 135/79; PULSE 69; RESP 18; TEMP 36.9; O2SAT 97
[2020-04-19 06:00] LABS: Blood Urea Nitrogen 8 mg/dL (7-17); Calcium 8.3 mg/dL (8.4-10.2); Carbon Dioxide 28 mmol/L (22-30); Chloride 102 mmol/L (98-107); Estimated CRCL calculation 60 ml/min; Estimated Glomerular Filt Rate > 60; Glucose 105 mg/dL (65-105); Potassium 3.6 mmol/L (3.4-5.0); Sodium 136 mmol/L (137-145)
[2020-04-19 06:02] LABS: Basophils Absolute Auto 0.1 K/mm3 (0.0-0.1); Basophils Percent Auto 0.5 % (0.2-1.2); Eosinophils Absolute Auto 0.5 K/mm3 (0-0.3); Eosinophils Percent Auto 4.3 % (0-4.4); Hematocrit 25.6 % (37.0-47.0); Hemoglobin 8.6 g/dL (12.0-15.0); Immature Granulocyte Absolute 0.04 K/mm3 (0.00-0.031); Immature Granulocyte Percent A 0.4 % (0-0.5); Lymphocytes Absolute Auto 1.65 K/mm3 (0.9-3.2); Lymphocytes Percent Auto 15.9 % (18.3-44.2); Mean Corpuscular HGB Conc 33.6 g/dl (32-36); Mean Corpuscular Hemoglobin 30.6 pg (26-34); Mean Corpuscular Volume 91.1 fl (80-100); Mean Platelet Volume 10.1 fl (7.4-10.4); Monocytes Absolute Auto 0.8 K/mm3 (0.1-0.6); Monocytes Percent Auto 7.8 % (2.6-8.5); Neutrophils Absolute Auto 7.4 K/mm3 (1.3-6.7); Neutrophils Percent Auto 71.1 % (45.5-73.1); Platelet Count Result 228 k/mm3 (150-375); Red Blood Count 2.81 M/mm3 (4.2-5.4); Red Cell Distribution Width 12.1 % (11.5-14.5); White Blood Count 10.4 K/mm3 (4.5-10.0)
--- NOTE | 2020-04-19 07:54 | PM.PNORT ---
Progress Note: A&P Assessment and Plan (1) Intertrochanteric fracture of right hip: Qualifiers: Encounter type: subsequent encounter Fracture type: closed Fracture alignment: displaced Fracture healing: with routine healing Qualified Code(s): S72.141D - Displaced intertrochanteric fracture of right femur, subsequent encounter for closed fracture with routine healing Code(s): S72.141A - Displaced intertrochanteric fracture of right femur, initial encounter for closed fracture Status: Acute Assessment and Plan: Postoperative day 3. Right hip intramedullary nail. Oriented to self and place. Otherwise stable. PT/OT with weight-bearing as tolerated right leg. Will be difficult to mobilize secondary to nonweightbearing left leg and right arm. Pain control while trying to limit narcotics secondary to dementia. Will require placement. (2) Fracture of proximal end of right humerus: Qualifiers: Encounter type: subsequent encounter Fracture type: closed Fracture morphology: other fracture Fracture alignment: displaced Fracture healing: with routine healing Qualified Code(s): S42.291D - Other displaced fracture of upper end of right humerus, subsequent encounter for fracture with routine healing Code(s): S42.201A - Unspecified fracture of upper end of right humerus, initial encounter for closed fracture Status: Acute (3) Fracture of distal end of left fibula: Qualifiers: Encounter type: subsequent encounter Fracture type: closed Fracture morphology: other fracture Fracture healing: with routine healing Qualified Code(s): S82.832D - Other fracture of upper and lower end of left fibula, subsequent encounter for closed fracture with routine healing Code(s): S82.832A - Other fracture of upper and lower end of left fibula, initial encounter for closed fracture Status: Acute Assessment and Plan: Fracture boot for left ankle with weight-bearing as tolerated on left side. Subjective Subjective Date/Time Seen: 04/19/20 07:54 Resting comfortably. No new complaints. Exam Const: General: cooperative, no acute distress, awake and confusion Orientation/consciousness: oriented to person, oriented to place and confusion HENMT: Head: normal to inspection, normocephalic and atraumatic Eyes: Conjunctivae: conjunctivae normal Sclera: sclerae normal Neck: Neck: supple and nontender Chest: Chest palpation & inspection: normal inspection of the chest Resp: Effort & Inspection: normal respiratory effort and no audible wheezes Cardio: Rate: regular rate Rhythm: regular rhythm GI: GI Palp: No abdominal tenderness and Yes Soft to palpation : General: Yes deferred Skin: General skin exam: no rashes or lesions noted Neuro: General: patient oriented x3 and No confusion Extrem: General: capillary refill normal Right upper extremity: shoulder/upper arm, elbow/forearm and Extremity exam: right hand Left upper extremity: normal to inspection Right lower extremity: hip/thigh, ankle ( able to actively flex and extend ankle) and foot; abnormal to inspection (Shortened and externally rotated leg) Left lower extremity: hip/thigh, lower leg, ankle (no calf tenderness) and foot Other: Right hip incisions clean dry and intact. Right upper extremity: shoulder/upper arm abnormal to inspection other (Diffuse swelling), tenderness of the proximal humerus and abnormal ROM (Deferred secondary to fracture), elbow/forearm tenderness of the lateral epicondyle and of the radial head and abnormal ROM (Arm in sling); ROM abnormal and Extremity exam: right hand normal to inspection, neuromotor exam normal wrist extension normal, thumb opposition normal, thumb IP flexion normal and fingers 2-5 ABduction normal, neurosensory exam abnormal radial nerve sensory function normal, ulnar nerve sensory function normal, median nerve sensory function normal and digital nerve sensory functi
[2020-04-19 08:47] VITALS: O2SAT 96
[2020-04-19] MEDS: DOCUSATE SODIUM 100 MG CAPSULE PO ×2 (09:57→18:13)
[2020-04-19] MEDS: FAMOTIDINE 20 MG TABLET PO (09:57)
[2020-04-19] MEDS: SERTRALINE HCL 25 MG TABLET PO (09:57)
--- NOTE | 2020-04-19 10:16 | PC.NURSE ---
Patient is alert and oriented X4 at this time, but is forgetful (history of dementia). She was able to tell me her name, , place, month, year and why she is at the hospital.
--- NOTE | 2020-04-19 11:26 | PCOTNOTE ---
Attempted to see patient this am, however patient declined stating she was up in the chair for a while and just got back to bed. Pt stated, I'm really tired.
[2020-04-19 14:00] VITALS: BP 121/78; PULSE 78; RESP 16; TEMP 37; O2SAT 100
--- NOTE | 2020-04-21 17:06 | PM.DS ---
DS: Admitting Diagnosis Admitting Diagnosis Admitting Diagnosis: Displaced intertrochanteric fracture of right femur, initial encounter for closed fracture DS: Discharge Diagnosis Discharge Diagnosis (1) Intertrochanteric fracture of right hip: Qualifiers: Encounter type: subsequent encounter Fracture type: closed Fracture alignment: displaced Fracture healing: with routine healing Qualified Code(s): S72.141D - Displaced intertrochanteric fracture of right femur, subsequent encounter for closed fracture with routine healing Code(s): S72.141A - Displaced intertrochanteric fracture of right femur, initial encounter for closed fracture Status: Acute Assessment and Plan: She underwent reduction and intramedullary hip screw fixation on 04/16/[address] Chambers. She will continue PT/OT at [facility]. She will continue aspirin for 3 weeks. She will follow-up with Dr. Chambers in 2 weeks. (2) Fracture of distal end of left fibula: Qualifiers: Encounter type: subsequent encounter Fracture type: closed Fracture morphology: other fracture Fracture healing: with routine healing Qualified Code(s): S82.832D - Other fracture of upper and lower end of left fibula, subsequent encounter for closed fracture with routine healing Code(s): S82.832A - Other fracture of upper and lower end of left fibula, initial encounter for closed fracture Status: Acute Assessment and Plan: Ankle xray revealed a left lateral malleolar fracture. She discussed this with ortho and opted for non-operative management. She will continue wearing a boot and working with PT/OT at [place]. She will follow-up in 2 weeks. (3) Fracture of proximal end of right humerus: Qualifiers: Encounter type: subsequent encounter Fracture type: closed Fracture morphology: other fracture Fracture alignment: displaced Fracture healing: with routine healing Qualified Code(s): S42.291D - Other displaced fracture of upper end of right humerus, subsequent encounter for fracture with routine healing Code(s): S42.201A - Unspecified fracture of upper end of right humerus, initial encounter for closed fracture Status: Acute Assessment and Plan: Shoulder xray revealed a mildly superomedially displaced transverse surgical neck fracture of the right humerus during her fall. She discussed this with ortho and opted for non-operative management. She will continue sling immobilization and follow-up. (4) Osteopenia determined by x-ray: Code(s): M85.80 - Other specified disorders of bone density and structure, unspecified site Status: Acute Assessment and Plan: Plain films reveal osteopenia. Vitamin D level was sufficient at 50.9. She will benefit from further evaluation outpatient and DEXA scan if not already performed. (5) Normocytic anemia: Code(s): D64.9 - Anemia, unspecified Status: Acute Assessment and Plan: She developed anemia post-operatively, likely related to acute surgical blood loss. She had no active bleeding or evidence of hematoma. She remains stable and asymptomatic. (6) Depression: Qualifiers: Depression Type: major depressive disorder Major depression recurrence: unspecified whether recurrent Active/Remission status: remission status unspecified Qualified Code(s): F32.9 - Major depressive disorder, single episode, unspecified Code(s): F32.9 - Major depressive disorder, single episode, unspecified Status: Chronic Assessment and Plan: She endorsed depressed mood and was tearful on some occasions. She was very upset about having to leave her apartment at [facility] as she very much enjoys living there. She denies suicidal ideation. She will continue her sertraline. (7) Hyperlipidemia: Qualifiers: Hyperlipidemia type: unspecified Qualified Code(s): E78.5 - Hyperlipidemia, un
== END 2020-04-19 19:39 | DRG 481 ==
LOC: ANHED 23:21 → ANH3MEDSUR 04-16 02:19
PROVIDERS: Orthopaedic Surgery; Physician Assistant; Admitting Provider Family Medicine; Emergency Provider Emergency Medicine; PCP Student in an Organized Health Care Education/Training Program; Visit Provider Physician Assistant
PROC: 0QS636Z Reposition Right Upper Femur with Intramedullary Internal Fixation Device, Percutaneous Approach (ICD-10-PCS; CPT 27245; principal; 2020-04-16 09:30)
DX: S72.141A Displaced intertrochanteric fracture of right femur, initial encounter for closed fracture (principal); S42.211A Unspecified displaced fracture of surgical neck of right humerus, initial encounter for closed fracture; D62 Acute posthemorrhagic anemia; S82.832A Other fracture of upper and lower end of left fibula, initial encounter for closed fracture; M85.80 Other specified disorders of bone density and structure, unspecified site; D64.9 Anemia, unspecified; E78.5 Hyperlipidemia, unspecified; F32.9 Major depressive disorder, single episode, unspecified; F03.90 Unspecified dementia, unspecified severity, without behavioral disturbance, psychotic disturbance, mood disturbance, and anxiety; R01.1 Cardiac murmur, unspecified; W19.XXXA Unspecified fall, initial encounter
CPT/HCPCS: 36415; 71045; 73030; 73080; 73502; 73610; 80048; 80053; 81001; 82306; 83735; 85025; 85027; 85610; 85730; 93005; 93306; 97110; 97116; 97163; 97167; 97530; 97535; 99285; A4565; A9270; C1713; J0131; J0690; J1100; J2270; J2405; J2704; J3010; J7030; J7120; L2116

== ENCOUNTER 2020-04-29 22:51 | Emergency (ER) | payer OTHER, MEDICAID, SELFPAY ==
--- NOTE | ~2020-04-29 | XR_ITS ---
XR chest 2V DATE: 04/29/2020 23:25 INDICATION: Chest pressure, chest pain. TECHNIQUE: AP and lateral views COMPARISON: 04/15/2020 portable AP chest FINDINGS: Normal heart size. There is aortic calcification and mild unfolding. No hilar or mediastina l enlargement. No pulmonary infiltrate or consolidation, pleural effusion or pulmonary vascular congestion or pneumo thorax. There is a recent surgical neck fracture of the proximal right humerus. There is diffuse osteopenia. There is scoliosis and degenerative change of the thoracic spine. IMPRESSION: No active cardiopulmonary disease Right humeral surgical neck fracture Osteopenia Reviewed, dictated and finalized at location A.
--- NOTE | 2020-04-29 22:57 | ECG_ITS ---
Measurements Intervals [place] Rate: 77 P: 86 HI: 162 QRS: 55 QRSD: 102 T: 46 QT: 406 QTc: 460 Interpretive Statements SINUS RHYTHM INCOMPLETE RIGHT BUNDLE BRANCH BLOCK BASELINE ARTIFACT- I, II, III, AVL BORDERLINE ECG Electronically Signed On 04-30-2020 7:55:46 CDT by Oliver Watson D.O.
[2020-04-29 22:59] VITALS: BP 118/83; PULSE 82; RESP 15; TEMP 36.4; O2SAT 97
--- NOTE | 2020-04-29 23:05 | ED.CHESTPAIN ---
HPI - Chest Pain General Chief Complaint: Chest Pain Stated Complaint: CP History of Present Illness HPI narrative: Patient presents via EMS from the assisted for chest discomfort. She said is not a pain it is more of a pressure. She cannot give the number. No radiation. No shortness of breath nausea or diaphoresis. She has not had a before. She is not in any pain anywhere. She is in rehab for a fall with a left ankle fracture and a right shoulder fracture. She has some problem with her memory but is oriented here. She has not been sick. MD complaint: chest heaviness Onset (ago): hour(s) Timing of current episode: other (Much better okay) Prior episodes: No Related Data Home Medications Medication Instructions Recorded Confirmed donepezil 5 mg PO HS 04/15/20 04/15/20 ergocalciferol (vitamin D2) 1,250 mcg PO WEEKLY 04/15/20 04/15/20 [Vitamin D2] pravastatin 40 mg PO HS 04/15/20 04/15/20 sertraline 25 mg PO DAILY 04/15/20 04/15/20 Allergies Allergy/AdvReac Type Severity Reaction Status Date / Time No Known Allergies Allergy Unknown Verified 09/10/19 16:13 Review of Systems Review of Systems: Narrative: CONSTITUTIONAL: Denies fever, chills, or sweats. EYES: Denies visual changes, redness, or discharge. ENT: Denies rhinorrhea, congestion, sore throat, or otalgia. CARDIOVASCULAR: Denies chest pain, palpitations, or edema. RESPIRATORY: Denies cough or dyspnea. GASTROINTESTINAL: Denies abdominal pain, nausea, vomiting, or diarrhea. GENITOURINARY: Denies dysuria or hematuria. SKIN: Denies rash or itching. MUSCULOSKELETAL: Denies back pain, joint pain, or myalgia. NEUROLOGIC: Denies headache, numbness, or weakness. PSYCHIATRIC: Denies anxiety or depression. [facility] Past Medical History Medical History Dementia Depression Fracture of distal end of left fibula Fracture of proximal end of right humerus Hx of suicide attempt Hyperlipidemia Intertrochanteric fracture of right hip Surgical History Surgical History Hx of colonoscopy Social History Social History (Updated 04/29/20 @ 23:08 by Yana Frazier MD) Smoking status: Never smoker Alcohol intake: former Substance use: never Gender identity (if verbalized by the patient): Female Spiritual care concerns: No Exam Narrative: Exam Narrative: GENERAL: Well-appearing, well-nourished, and in no acute distress. Left leg is in a walking boot, and right arm is in sling. HEAD: Normocephalic, atraumatic. EYES: PERRLA and EOMI. ENT: Nares clear, no rhinorrhea or epistaxis. Mucous membranes moist. NECK: Supple. CHEST: Clear to auscultation. No respiratory distress. HEART: Regular rate and rhythm. No murmur heard. Normal peripheral pulses. ABDOMEN: Soft, nontender, nondistended, normal active bowel sounds. EXTREMITIES: Normal range of motion. No edema. SKIN: Warm, dry, no rash. NEURO: No focal deficits. Alert and oriented x3. PSYCH: Normal mood and affect. Const: General: no acute distress and alert Orientation/consciousness: patient oriented x3 Course Reevaluation(s) Reevaluation #1: The patient now feels fine, she cannot remember why she was here, she cannot remember where she is supposed to go back to. She said her right heel hurts. It has a tiny bit of redness. I elevated her right calf on a pillow and that helped. She is sad that her memory is getting bad. Date: 04/30/20 Time: 00:28 Vital Signs Vital signs: Vital Signs Temperature 97.5 F L 04/29/20 22:59 Pulse Rate 82 04/29/20 22:59 Respiratory Rate 15 04/29/20 22:59 Blood Pressure 118/83 04/29/20 22:59 Pulse Oximetry 97 04/29/20 22:59 Temperature 97.5 F L 04/29/20 22:59 Pulse Rate 68 04/29/20 23:57 Respiratory Rate 17 04/29/20 23:57 Blood Pressure 117/78 04/29/20 23:57 Pulse Oximetry 93 04/29/20 23:57 MDM - Chest Pain Medical Records
[2020-04-29 23:07] VITALS: PULSE 77; O2SAT 94
--- NOTE | 2020-04-29 23:07 | PC.NURSE ---
Assumed care of pt at this time. Report JOSAFAT Isaac
[2020-04-29 23:24] LABS: Basophils Absolute Auto 0.1 K/mm3 (0.0-0.1); Basophils Percent Auto 0.5 % (0.2-1.2); Eosinophils Absolute Auto 0.4 K/mm3 (0-0.3); Eosinophils Percent Auto 3.6 % (0-4.4); Hematocrit 29.1 % (37.0-47.0); Hemoglobin 9.8 g/dL (12.0-15.0); Immature Granulocyte Absolute 0.05 K/mm3 (0.00-0.031); Immature Granulocyte Percent A 0.5 % (0-0.5); Lymphocytes Absolute Auto 2.52 K/mm3 (0.9-3.2); Lymphocytes Percent Auto 24.9 % (18.3-44.2); Mean Corpuscular HGB Conc 33.7 g/dl (32-36); Mean Corpuscular Hemoglobin 30.8 pg (26-34); Mean Corpuscular Volume 91.5 fl (80-100); Mean Platelet Volume 8.6 fl (7.4-10.4); Monocytes Absolute Auto 0.6 K/mm3 (0.1-0.6); Monocytes Percent Auto 5.9 % (2.6-8.5); Neutrophils Absolute Auto 6.6 K/mm3 (1.3-6.7); Neutrophils Percent Auto 64.6 % (45.5-73.1); Platelet Count Result 473 k/mm3 (150-375); Red Blood Count 3.18 M/mm3 (4.2-5.4); Red Cell Distribution Width 13.3 % (11.5-14.5); White Blood Count 10.1 K/mm3 (4.5-10.0)
[2020-04-29 23:33] LABS: Partial Thromboplastin Time 29.8 SECONDS (22.3-36.8)
[2020-04-29] MEDS: BELLADONNA ALK/PHENOB ELIX 10 ML, MAG HYDROX/ALUMINUM HYD/SIMETH 30 ML, LIDOCAINE HCL 2... PO (23:40)
[2020-04-29 23:47] LABS: Blood Urea Nitrogen 11 mg/dL (7-17); Calcium 9.5 mg/dL (8.4-10.2); Carbon Dioxide 28 mmol/L (22-30); Chloride 102 mmol/L (98-107); Estimated CRCL calculation 63 ml/min; Estimated Glomerular Filt Rate > 60; Glucose 99 mg/dL (65-105); Potassium 3.2 mmol/L (3.4-5.0); Sodium 136 mmol/L (137-145)
[2020-04-29 23:57] VITALS: BP 117/78; PULSE 68; RESP 17; O2SAT 93
[2020-04-29 23:59] LABS: NT Pro B Type Natriuretic Pept 123 PG/ML (5-100); Troponin I < 0.012 ng/mL (0.000-0.034)
[2020-04-30 01:34] VITALS: BP 124/87; PULSE 94; RESP 15; O2SAT 97
== END 2020-04-30 01:34 ==
PROVIDERS: Emergency Provider Emergency Medicine; PCP Student in an Organized Health Care Education/Training Program
DX: R07.89 Other chest pain (principal); F03.90 Unspecified dementia, unspecified severity, without behavioral disturbance, psychotic disturbance, mood disturbance, and anxiety; E78.5 Hyperlipidemia, unspecified; F32.9 Major depressive disorder, single episode, unspecified; I45.10 Unspecified right bundle-branch block
CPT/HCPCS: 36415; 71046; 80048; 83880; 84484; 85025; 85610; 85730; 93005; 99284; A9270

== ENCOUNTER 2020-12-04 13:24 | Emergency (ER) | payer OTHER, MEDICAID, SELFPAY ==
--- NOTE | ~2020-12-04 | XR_ITS ---
EXAMINATION: XR chest 2V DATE: 12/04/2020 13:51 INDICATION: Chest pain. TECHNIQUE: Frontal and lateral views of the chest were obtained. COMPARISON: Chest 2 views 04/29/2020 FINDINGS: There is mild scarring at the lung apices. There is chronic blunting of left posterior cost ophrenic angle. No pneumothorax. The heart size is normal. There is an old healed fracture of proxima l right humerus. IMPRESSION: 1. Chronic blunting of left posterior costophrenic angle, consistent with scarring versus tiny pleura l effusion. 2. Mild scarring at the lung apices. Reviewed, dictated and finalized at location A. SMISSION BUILDER IMPRESSION: 1. Chronic blunting of left posterior costophrenic angle, consistent with scarr ing versus tiny pleural effusion. 2. Mild scarring at the lung apices.
[2020-12-04 13:35] VITALS: BP 127/78; PULSE 63; RESP 14; TEMP 36.3; O2SAT 100
--- NOTE | 2020-12-04 13:38 | ECG_ITS ---
Measurements Intervals [place] Rate: 65 P: -27 NM: 146 QRS: 15 QRSD: 90 T: 20 QT: 421 QTc: 438 Interpretive Statements SINUS RHYTHM INCOMPLETE RIGHT BUNDLE BRANCH BLOCK BASELINE ARTIFACT- I, II, III, AVR, AVL, AVF, V3, V6 BORDERLINE ECG Electronically Signed On 12-04-2020 13:39:54 TECHNICAL SERVICES MANAGER by Oliver Watson D.O.
[2020-12-04 13:49] LABS: Basophils Percent Auto 0.6 % (0.2-1.2); Eosinophils Absolute Auto 0.2 K/mm3 (0-0.3); Eosinophils Percent Auto 2.1 % (0-4.4); Hematocrit 37.8 % (37.0-47.0); Hemoglobin 12.5 g/dL (12.0-15.0); Immature Granulocyte Absolute 0.01 K/mm3 (0.00-0.031); Immature Granulocyte Percent A 0.1 % (0-0.5); Lymphocytes Absolute Auto 2.08 K/mm3 (0.9-3.2); Lymphocytes Percent Auto 29.5 % (18.3-44.2); Mean Corpuscular HGB Conc 33.1 g/dl (32-36); Mean Corpuscular Hemoglobin 30.3 pg (26-34); Mean Corpuscular Volume 91.5 fl (80-100); Mean Platelet Volume 9.8 fl (7.4-10.4); Monocytes Absolute Auto 0.5 K/mm3 (0.1-0.6); Monocytes Percent Auto 6.9 % (2.6-8.5); Neutrophils Absolute Auto 4.3 K/mm3 (1.3-6.7); Neutrophils Percent Auto 60.8 % (45.5-73.1); Platelet Count Result 254 k/mm3 (150-375); Red Blood Count 4.13 M/mm3 (4.2-5.4); Red Cell Distribution Width 11.9 % (11.5-14.5); White Blood Count 7.1 K/mm3 (4.5-10.0)
[2020-12-04 13:59] LABS: Prothrombin Time 13.6 Seconds (11.1-14.7)
[2020-12-04 14:00] LABS: Partial Thromboplastin Time 29.7 SECONDS (22.3-36.8)
[2020-12-04 14:01] LABS: Anion Gap 7 mmol/L (8-16); Blood Urea Nitrogen 13 mg/dL (7-17); Calcium 9.3 mg/dL (8.4-10.2); Carbon Dioxide 32 mmol/L (22-30); Chloride 100 mmol/L (98-107); Estimated CRCL calculation 41 ml/min; Estimated Glomerular Filt Rate > 60; Glucose 83 mg/dL (65-105); Sodium 139 mmol/L (137-145)
[2020-12-04 14:12] LABS: Troponin I < 0.012 ng/mL (0.000-0.034)
[2020-12-04 14:28] VITALS: BP 121/71; PULSE 60; RESP 18; O2SAT 99
--- NOTE | 2020-12-04 14:35 | PC.NURSE ---
according to triage note patient presented via ems with report of chest pressure. patient now states she fell at her senior care but has no injury or complaints at this time. does not remember saying that she had chest pain
[2020-12-04] MEDS: ASPIRIN 81 MG CHEWABLE TABLET 324 MG PO (15:03)
--- NOTE | 2020-12-04 15:26 | PC.NURSE ---
Both sets of blood cultures sent, LAC and RAC
--- NOTE | 2020-12-04 15:46 | ED.GENADULT ---
HPI - General Adult General Chief complaint: Chest Pain Stated complaint: cp Time Seen by Provider: 12/04/20 14:51 Source: patient History of Present Illness HPI narrative: Patient is a 80 y/o female complaining of left sided chest pain since about 9:00 AM this morning. She describes her pain as aching and feels like a punch in the chest. She rates her pain as 7/10. She states that she took Aspirin, which helped some with her pain. She state that her pain radiates to left shoulder. She has no SOB, sweating, vomiting or coughing. Related Data Home Medications Medication Instructions Recorded Confirmed donepezil 5 mg PO HS 04/15/20 04/15/20 pravastatin 40 mg PO HS 04/15/20 04/15/20 sertraline 25 mg PO DAILY 04/15/20 04/15/20 aspirin 325 mg tablet,delayed 325 mg PO QAM tablet 05/23/20 release docusate sodium 100 mg capsule 100 mg PO BID cap 05/23/20 ergocalciferol (vitamin D2) 1,250 1,250 mcg PO WEEKLY 05/23/20 mcg (50,000 unit) capsule Allergies Allergy/AdvReac Type Severity Reaction Status Date / Time No Known Allergies Allergy Unknown Verified 05/23/20 13:21 Review of Systems Constitutional: Constitutional: Denies chills, Denies fever(s), Denies headache(s) and Denies weakness Eyes: Eyes: Denies blurry vision ENT: Denies headache(s) and Denies neck pain Cardiovascular: Cardiovascular: Reports chest pain and Denies dyspnea Respiratory: Respiratory: Denies cough and Denies dyspnea Gastrointestinal: Gastrointestinal: Denies abdominal pain, Denies diarrhea, Denies nausea and Denies vomiting Genitourinary: Genitourinary: Denies hematuria and Denies dysuria Musculoskeletal: Musculoskeletal: Denies back pain and Denies neck pain Neurologic: Denies headache(s) and Denies weakness PMFSH Past Medical History Medical History Aftercare following surgery of the musculoskeletal system Dementia Depression Fracture of distal end of left fibula Fracture of proximal end of right humerus Hx of suicide attempt Hyperlipidemia Intertrochanteric fracture of right hip Surgical History Surgical History Hx of colonoscopy Family History Family History Father Family history of malignant neoplasm Patient's father is Mother Family history of heart disease in male family member before age 55 Patient's mother is Social History Social History Smoking status: Never smoker Alcohol intake: former Substance use: never Gender identity (if verbalized by the patient): Female Spiritual care concerns: No Exam Const: General: no acute distress and well developed Orientation/consciousness: oriented to person, oriented to place, oriented to time and patient oriented x3 HENMT: Head: normocephalic Ears: external ears normal General nose exam: Normal external nose present Eyes: General: appearance normal, both eyes and all related structures Conjunctivae: conjunctivae normal Neck: Neck: normal visual inspection and full ROM Chest: Chest palpation & inspection: normal inspection of the chest and no tenderness Resp: Effort & Inspection: normal respiratory effort Auscultation: clear to auscultation bilaterally Cardio: Rate: regular rate Rhythm: regular rhythm GI: GI Palp: No abdominal tenderness and Yes Soft to palpation Skin: General skin exam: normal color and turgor normal Neuro: General: oriented to person, oriented to place, oriented to time and patient oriented x3 Cognition (Neuro): normal cognition Extrem: General: normal to inspection, full ROM and no pedal edema Psych: Appearance: grossly normal Mental Status: mental status grossly normal Affect: normal affect Course Reevaluation(s) Reevaluation #1: Patient wants to leave [place]. She does no
[2020-12-04 16:17] VITALS: BP 145/75; PULSE 63; RESP 18; TEMP 37; O2SAT 100
[2020-12-04 16:20] VITALS: BP 145/75; PULSE 63; RESP 18; TEMP 37; O2SAT 100
== END 2020-12-04 16:26 | disposition left against medical advice (07) ==
PROVIDERS: Emergency Medicine; Emergency Provider Emergency Medicine; PCP Student in an Organized Health Care Education/Training Program
DX: R07.9 Chest pain, unspecified (principal); F03.90 Unspecified dementia, unspecified severity, without behavioral disturbance, psychotic disturbance, mood disturbance, and anxiety; F32.9 Major depressive disorder, single episode, unspecified; E78.5 Hyperlipidemia, unspecified; Z79.82 Long term (current) use of aspirin; I45.10 Unspecified right bundle-branch block
CPT/HCPCS: 36415; 71046; 80048; 84484; 85025; 85610; 85730; 93005; 99284; A9270

== ENCOUNTER 2021-05-07 04:33 | Emergency (ER) | payer OTHER, MEDICAID, SELFPAY ==
[2021-05-07] VITALS (7 sets, daily range): BP systolic 140–157; BP diastolic 79–85; PULSE 56–65; RESP 13–21; TEMP 36.3; O2SAT 97–100
--- NOTE | ~2021-05-07 | XR_ITS ---
XR chest 1V portable 05/07/2021 04:53 Indication: Chest pain and left arm pain Procedure: AP portable chest Comparison: Comparison to multiple prior studies sequentially, with oldest reviewed study dated 04/2013. Findings: Heart size normal. No focal air space disease, pulmonary edema, pleural effusion or suspect ed pneumothorax. There is apical pleural thickening/scarring. Impression: 1: No acute cardiopulmonary disease. Reviewed, dictated and finalized at location A. Impression: 1: No acute cardiopulmonary disease.
--- NOTE | 2021-05-07 04:39 | ECG_ITS ---
Measurements Intervals [place] Rate: 59 P: 30 NC: 161 QRS: 51 QRSD: 89 T: 34 QT: 445 QTc: 442 Interpretive Statements SINUS BRADYCARDIA INCOMPLETE RIGHT BUNDLE BRANCH BLOCK BASELINE ARTIFACT- V4-V5 BORDERLINE ECG Electronically Signed On 05-07-2021 5:50:30 CDT by Oliver Watson D.O.
[2021-05-07] MEDS: ASPIRIN 81 MG CHEWABLE TABLET 324 MG PO (04:52)
[2021-05-07 04:53] LABS: Basophils Absolute Auto 0.1 K/mm3 (0.0-0.1); Basophils Percent Auto 0.8 % (0.2-1.2); Eosinophils Absolute Auto 0.3 K/mm3 (0-0.3); Eosinophils Percent Auto 3.5 % (0-4.4); Hematocrit 37.2 % (37.0-47.0); Hemoglobin 12.4 g/dL (12.0-15.0); Immature Granulocyte Absolute 0.03 K/mm3 (0.00-0.031); Immature Granulocyte Percent A 0.4 % (0-0.5); Lymphocytes Absolute Auto 2.79 K/mm3 (0.9-3.2); Lymphocytes Percent Auto 38.5 % (18.3-44.2); Mean Corpuscular HGB Conc 33.3 g/dl (32-36); Mean Corpuscular Hemoglobin 30.2 pg (26-34); Mean Corpuscular Volume 90.5 fl (80-100); Mean Platelet Volume 9.7 fl (7.4-10.4); Monocytes Absolute Auto 0.6 K/mm3 (0.1-0.6); Monocytes Percent Auto 8.1 % (2.6-8.5); Neutrophils Absolute Auto 3.5 K/mm3 (1.3-6.7); Neutrophils Percent Auto 48.7 % (45.5-73.1); Platelet Count Result 237 k/mm3 (150-375); Red Blood Count 4.11 M/mm3 (4.2-5.4); Red Cell Distribution Width 11.8 % (11.5-14.5); White Blood Count 7.2 K/mm3 (4.5-10.0)
--- NOTE | 2021-05-07 05:00 | PC.NURSE ---
With patient history of falls and dementia, bed alarm placed on patient.
[2021-05-07 05:02] LABS: Alanine Aminotransferase 12 U/L (4-35); Albumin Level 4.2 g/dL (3.5-5.1); Alkaline Phosphatase 78 U/L (38-126); Anion Gap 9 mmol/L (8-16); Aspartate Amino Transferase 28 U/L (14-36); Bilirubin,Total 0.4 mg/dL (0.2-1.3); Blood Urea Nitrogen 7 mg/dL (7-17); Calcium 9.7 mg/dL (8.4-10.2); Carbon Dioxide 29 mmol/L (22-30); Chloride 104 mmol/L (98-107); Estimated Glomerular Filt Rate > 60; Glucose 89 mg/dL (65-105); Lipase 74 U/L (23-300); Prothrombin Time 13.4 Seconds (11.1-14.7); Sodium 142 mmol/L (137-145)
--- NOTE | 2021-05-07 05:02 | ED.GENADULT ---
HPI - General Adult General Chief complaint: Chest Pain Stated complaint: CP and Left arm numbness Time Seen by Provider: 05/07/21 04:38 History of Present Illness HPI narrative: Patient 80-year-old female who presents the emergency department with chief complaint of chest pain. The patient lives at a local fpc has history of dementia and reportedly it was having chest pain at the facility this morning patient upon arrival to the emergency department does not remember why she was brought to the emergency department and actually states that she really did want to cause any kind of fuss like this. The patient states that currently she denied having any chest pain and having shortness of breath reports that she has chronic pain in her shoulders from multiple orthopedic issues. Related Data Home Medications Medication Instructions Recorded Confirmed donepezil 5 mg PO HS 04/15/20 04/15/20 pravastatin 40 mg PO HS 04/15/20 04/15/20 sertraline 25 mg PO DAILY 04/15/20 04/15/20 aspirin 325 mg tablet,delayed 325 mg PO QAM tablet 05/23/20 release docusate sodium 100 mg capsule 100 mg PO BID cap 05/23/20 ergocalciferol (vitamin D2) 1,250 1,250 mcg PO WEEKLY 05/23/20 mcg (50,000 unit) capsule Allergies Allergy/AdvReac Type Severity Reaction Status Date / Time No Known Allergies Allergy Unknown Verified 05/07/21 04:47 Review of Systems Review of Systems: Narrative: A 10 system review of systems was completed on the patient and is negative except for what is stated in the HPI. Nursing and ancillary documentation was reviewed. [facility] Past Medical History Medical History Aftercare following surgery of the musculoskeletal system Dementia Depression Fracture of distal end of left fibula Fracture of proximal end of right humerus Hx of suicide attempt Hyperlipidemia Intertrochanteric fracture of right hip Surgical History Surgical History Hx of colonoscopy Family History Family History Father Family history of malignant neoplasm Patient's father is Mother Family history of heart disease in male family member before age 55 Patient's mother is Social History Social History Smoking status: Never smoker Alcohol intake: former Substance use: never Gender identity (if verbalized by the patient): Female Spiritual care concerns: No Exam Narrative: Exam Narrative: GENERAL: Well-appearing, well-nourished, and in no acute distress. HEAD: Normocephalic, atraumatic. EYES: PERRLA and EOMI. ENT: Nares clear, no rhinorrhea or epistaxis. Mucous membranes moist. NECK: Supple. CHEST: Clear to auscultation. No respiratory distress. HEART: Regular rate and rhythm. No murmur heard. Normal peripheral pulses. ABDOMEN: Soft, nontender, nondistended, normal active bowel sounds. EXTREMITIES: Normal range of motion. No edema. SKIN: Warm, dry, no rash. NEURO: No focal deficits. Alert and oriented x3. PSYCH: Normal mood and affect. Course Course Emergency Course: EKG shows a sinus rhythm with a rate of [address] elevation or ST depression noted Vital Signs Vital signs: Vital Signs Temperature 36.3 C L 05/07/21 04:31 Pulse Rate 65 05/07/21 04:31 Respiratory Rate 18 05/07/21 04:31 Blood Pressure 157/80 H 05/07/21 04:31 Pulse Oximetry 100 05/07/21 04:31 Temperature 36.3 C L 05/07/21 04:31 Pulse Rate 65 05/07/21 04:31 Respiratory Rate 18 05/07/21 04:31 Blood Pressure 157/80 H 05/07/21 04:31 Pulse Oximetry 100 05/07/21 04:31 Medical Decision Making Vital Signs Vital Signs: Vital Signs Temperature 36.3 C L 05/07/21 04:31 Pulse Rate 65 05/07/21 04:31 Respiratory Rate 18 05/07/21 0
[2021-05-07 05:14] LABS: Troponin I < 0.012 ng/mL (0.000-0.034)
--- NOTE | 2021-05-07 05:45 | PC.NURSE ---
0542 Report called to Maia patient's caregiver at [facility].
== END 2021-05-07 06:19 ==
PROVIDERS: Emergency Provider Emergency Medicine; PCP Student in an Organized Health Care Education/Training Program
DX: R07.89 Other chest pain (principal); F03.90 Unspecified dementia, unspecified severity, without behavioral disturbance, psychotic disturbance, mood disturbance, and anxiety; F32.9 Major depressive disorder, single episode, unspecified
CPT/HCPCS: 36415; 71045; 80053; 83690; 84484; 85025; 85610; 85730; 93005; 99284; A9270

== ENCOUNTER 2021-06-14 12:06 | Emergency (ER) | payer OTHER, MEDICAID, SELFPAY ==
[2021-06-14 12:12] VITALS: BP 161/72; PULSE 80; RESP 18; TEMP 36.7; O2SAT 100
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
[2021-06-14 13:50] LABS: Basophils Absolute Auto 0.1 K/mm3 (0.0-0.1); Basophils Percent Auto 0.6 % (0.2-1.2); Eosinophils Absolute Auto 0.1 K/mm3 (0-0.3); Eosinophils Percent Auto 1.2 % (0-4.4); Hematocrit 43.7 % (37.0-47.0); Hemoglobin 14.3 g/dL (12.0-15.0); Immature Granulocyte Absolute 0.02 K/mm3 (0.00-0.031); Immature Granulocyte Percent A 0.2 % (0-0.5); Lymphocytes Absolute Auto 2.01 K/mm3 (0.9-3.2); Lymphocytes Percent Auto 21.1 % (18.3-44.2); Mean Corpuscular HGB Conc 32.7 g/dl (32-36); Mean Corpuscular Hemoglobin 30.2 pg (26-34); Mean Corpuscular Volume 92.2 fl (80-100); Mean Platelet Volume 9.9 fl (7.4-10.4); Monocytes Absolute Auto 0.4 K/mm3 (0.1-0.6); Monocytes Percent Auto 4.5 % (2.6-8.5); Neutrophils Absolute Auto 6.9 K/mm3 (1.3-6.7); Neutrophils Percent Auto 72.4 % (45.5-73.1); Platelet Count Result 367 k/mm3 (150-375); Red Blood Count 4.74 M/mm3 (4.2-5.4); Red Cell Distribution Width 11.9 % (11.5-14.5); White Blood Count 9.5 K/mm3 (4.5-10.0)
[2021-06-14 14:08] LABS: Anion Gap 12 mmol/L (8-16); Blood Urea Nitrogen 8 mg/dL (7-17); Calcium 10.1 mg/dL (8.4-10.2); Carbon Dioxide 28 mmol/L (22-30); Chloride 100 mmol/L (98-107); Estimated CRCL calculation 52 ml/min; Estimated Glomerular Filt Rate > 60; Glucose 112 mg/dL (65-110); Sodium 140 mmol/L (137-145)
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
[2021-06-14 14:19] VITALS: BP 130/64; PULSE 66; RESP 16; TEMP 36.6; O2SAT 99
[2021-06-14 14:24] LABS: Add Urine Microscopic? YES; Appearance Urine Clear (Clear); Bilirubin Urine Negative (Negative); Blood Urine Negative (Negative); Color Urine Straw (Yellow); Glucose Urine UA Negative (Negative); Ketones Urine Negative (Negative); Leukocyte Esterase Ur Trace LEU/UL (Negative); Nitrate Urine Negative (Negative); Protein Urine Negative (Negative); Specific Grav Ur 1.006 (1.001-1.035); Urobilinogen Urine Negative mg/dL (<2.0)
--- NOTE | 2021-06-14 14:37 | PC.NURSE ---
INTRODUCED SELF TO PT AND ASKED HER WHAT BROUGHT HER TO THE ED? PT STATES I FELL THIS MORNING. MY L ANKLE TWISTED BECAUSE MY BONES ARE SO CRUMBLY. I HAVE A TITANIUM FARIHA IN MY R LEG FROM MY KNEE UP TO MY HIP AND I HAVE TITANIUM IN MY R ARM AFTER I FELL RECENTLY- MY BONES ARE SO CRUMBLY
[2021-06-14 15:30] VITALS: BP 152/68; PULSE 66; RESP 20; TEMP 36.7; O2SAT 100
== END 2021-06-14 15:35 ==
PROVIDERS: Emergency Medicine Emergency Medical Services; Emergency Provider Emergency Medicine; PCP Student in an Organized Health Care Education/Training Program
DX: F03.90 Unspecified dementia, unspecified severity, without behavioral disturbance, psychotic disturbance, mood disturbance, and anxiety (principal); E78.5 Hyperlipidemia, unspecified; Z79.82 Long term (current) use of aspirin; F32.9 Major depressive disorder, single episode, unspecified
CPT/HCPCS: 36415; 51701; 80048; 81001; 85025; 99283

== ENCOUNTER 2021-07-06 12:57 | Outpatient (CLI) | payer OTHER, MEDICAID, SELFPAY ==
--- NOTE | ~2021-07-06 | DEXA_ITS ---
Bone Density Report Name: Nano Rojas Age: 81 Sex: Female Ethnicity: White Date of : 1940 Indication: postmenopausal; height loss; prior fracture; Referring Provider: Curt, Moustapha Study: Bone densitometry was performed. Exam Date: July 06, 2021 Accession number: [id number] Bone Density: Region BMD T-score Z-score Classification AP Spine (L1-L4) 0.745 -2.7 0.0 Osteoporosis Femoral Neck (Left) 0.579 -2.4 -0.1 Osteopenia Total Hip (Left) 0.625 -2.6 -0.5 Osteoporosis World Health Organization criteria for BMD impression classify patients as: Normal (T-score at or above -1.0), Osteopenia (T-score between -1.0 and -2.5), or Osteoporosis (T-score at or below -2.5). 10-year Fracture Risk: FRAX not reported because: Some T-score for Spine Total or Hip Total or Femoral Neck at or below -2.5 Clinical Information Provided by Patient: Has had a low trauma fracture Patient maximum height was 68 No regular weight bearing exercise Onset of menses at age 13 Number of children 4 Impression: The patient has established osteoporosis, based on the Total Spine T-score and the existence of a prior fracture. The patient has risk factors, including: previous fracture. Discussion: HIGH RISK OF FRACTURE. BONE DENSITY IS UNDESIRABLY LOW AT ONE OR MORE SKELETAL SITES, CONSISTENT WITH POSTMENOPAUSAL OSTEOPOROSIS. This patient's lowest T-score, in a patient who has previously fractured, meets the World Health Organization's (WHO) criteria for severe osteoporosis. In untreated patients, the risk of osteoporotic fracture increases approximately two-fold for each 1.0 SD decrease in T-score. Low bone density is not the only risk factor for fracture; also consider factors such as patient's age, frailty or poor health, risk of falling, risk of injury, previous osteoporotic fracture, family history of osteoporosis, cigarette smoking, low body weight, etc. Not everyone with low bone mineral density has osteoporosis; osteomalacia and other metabolic bone disorders should also be considered. Patients who have osteoporosis should be evaluated for specific diseases and conditions (secondary causes) that may cause or contribute to bone loss. The [place] [employer] Endocrinologists (AACE) and National Osteoporosis Foundation (NOF) recommend pharmacologic intervention for all postmenopausal women whose T-score is in this range. The patient should follow a healthful lifestyle (good nutrition with adequate calcium and vitamin D, and appropriate weight-bearing exercise). Follow-Up: Consider a repeat BMD and Vertebral Fracture Assessment (VFA) exam in 2 years or sooner if medically necessary, to reassess this patient's status. Reported by: SUJATA on 07/06/2021 1:14:00 PM. Reviewed, dictated and finalized at location A. [place]
== END 2021-07-06 12:58 | disposition home or self-care (01) ==
LOC: ANHIMG 13:00
PROVIDERS: PCP Student in an Organized Health Care Education/Training Program; Visit Provider Student in an Organized Health Care Education/Training Program
DX: M81.0 Age-related osteoporosis without current pathological fracture (principal); M85.852 Other specified disorders of bone density and structure, left thigh
CPT/HCPCS: 77080

== ENCOUNTER 2021-07-19 21:59 | Observation (INO) | payer OTHER, MEDICAID, SELFPAY ==
[2021-07-19] VITALS (9 sets, daily range): BP systolic 89–94; BP diastolic 48–60; PULSE 76–86; RESP 17–26; TEMP 37.1; O2SAT 94–96
--- NOTE | ~2021-07-19 | XR_ITS ---
EXAMINATION: XR chest 2V EXAM DATE: 07/20/2021 02:07 INDICATION: weakness, transient alteration of awareness. TECHNIQUE: Frontal and lateral projections of the chest obtained and reviewed. Comparison is made to prior examination from 05/07/2021. FINDINGS: The lungs are hyperinflated which can be seen with chronic obstructive pulmonary disease ( a clinical diagnosis of functional impairment), but is not diagnostic of it. No confluent consolidati on, pneumothorax or pleural effusion suspected. Cardiomediastinal silhouette is normal. The bones are osteopenic. There is old right humeral neck fracture. There are bony degenerative changes. IMPRESSION: Hyperinflation. Reviewed, dictated and finalized at location A. IMPRESSION: Hyperinflation.
--- NOTE | 2021-07-19 22:08 | ECG_ITS ---
Measurements Intervals [place] Rate: 80 P: -6 MD: 142 QRS: 53 QRSD: 94 T: 28 QT: 439 QTc: 508 Interpretive Statements SINUS RHYTHM INCOMPLETE RIGHT BUNDLE BRANCH BLOCK PROLONGED QT INTERVAL ABNORMAL ECG Electronically Signed On 07-20-2021 6:24:36 CDT by Oliver Watson D.O.
[2021-07-19 22:27] LABS: Basophils Percent Auto 0.2 % (0.2-1.2); Hematocrit 39.7 % (37.0-47.0); Hemoglobin 13.5 g/dL (12.0-15.0); Immature Granulocyte Absolute 0.08 K/mm3 (0.00-0.031); Immature Granulocyte Percent A 0.6 % (0-0.5); Lymphocytes Percent Auto 2.1 % (18.3-44.2); Mean Corpuscular Hemoglobin 30.3 pg (26-34); Mean Corpuscular Volume 89.2 fl (80-100); Mean Platelet Volume 9.2 fl (7.4-10.4); Monocytes Absolute Auto 0.2 K/mm3 (0.1-0.6); Monocytes Percent Auto 1.2 % (2.6-8.5); Neutrophils Absolute Auto 13.5 K/mm3 (1.3-6.7); Neutrophils Percent Auto 95.9 % (45.5-73.1); Platelet Count Result 247 k/mm3 (150-375); Red Blood Count 4.45 M/mm3 (4.2-5.4); Red Cell Distribution Width 11.9 % (11.5-14.5); White Blood Count 14.1 K/mm3 (4.5-10.0)
[2021-07-19 22:39] LABS: Alanine Aminotransferase 129 U/L (4-35); Albumin Level 4.4 g/dL (3.5-5.1); Alkaline Phosphatase 89 U/L (38-126); Anion Gap 12 mmol/L (8-16); Aspartate Amino Transferase 205 U/L (14-36); Bilirubin,Total 0.7 mg/dL (0.2-1.3); Blood Urea Nitrogen 16 mg/dL (7-17); Calcium 9.6 mg/dL (8.4-10.2); Carbon Dioxide 22 mmol/L (22-30); Chloride 100 mmol/L (98-107); Estimated CRCL calculation 43 ml/min; Estimated Glomerular Filt Rate > 60; Glucose 135 mg/dL (65-110); Potassium 3.5 mmol/L (3.4-5.0); Sodium 134 mmol/L (137-145)
[2021-07-19 23:04] LABS: Add Urine Microscopic? YES; Appearance Urine Clear (Clear); Bacteria Urine Trace /hpf; Bilirubin Urine Negative (Negative); Blood Urine Negative (Negative); Color Urine Yellow (Yellow); Glucose Urine UA Negative (Negative); Ketones Urine Negative (Negative); Leukocyte Esterase Ur 2+ LEU/UL (Negative); Mucus Urine Rare /lpf; Nitrate Urine Negative (Negative); Protein Urine Negative (Negative); Specific Grav Ur 1.015 (1.001-1.035); Squamous Epithelial Cell Urine Occasional /hpf (Few); Urobilinogen Urine Negative mg/dL (<2.0)
[2021-07-19] MEDS: SODIUM CHLORIDE 0.9% IV 500 ML 999 ML IV CONT ×2 (23:09→23:46)
--- NOTE | 2021-07-19 23:17 | PC.NURSE ---
Report received and care of pt assumed at this time.
[2021-07-20] VITALS (34 sets, daily range): BP systolic 85–130; BP diastolic 46–74; PULSE 68–119; RESP 12–26; TEMP 36.2–36.9; O2SAT 82–100; BMI 23.8
--- NOTE | 2021-07-20 00:50 | ED.WEAKNESS ---
HPI - Weakness General Chief complaint: Weakness Stated complaint: ams - gateway yest change dementia status Time Seen by Provider: 07/19/21 22:42 Source: RN notes reviewed and other History of Present Illness HPI Narrative: Patient presents from nursing facility for decreased p.o. intake and weakness. Patient was referred to another ER for evaluation yesterday and was returned to the nursing facility the nurse fairly had continued concerns have referred patient to our ER for further evaluation. Reports she appears more weak and has had decreased appetite Related Data Home Medications Medication Instructions Recorded Confirmed donepezil 5 mg PO HS 04/15/20 07/19/21 pravastatin 40 mg PO HS 04/15/20 07/19/21 sertraline 25 mg PO DAILY 04/15/20 07/19/21 ergocalciferol (vitamin D2) 1,250 1,250 mcg PO WEEKLY 05/23/20 07/19/21 mcg (50,000 unit) capsule acetaminophen 500 mg PO QID PRN 07/19/21 07/19/21 Allergies Allergy/AdvReac Type Severity Reaction Status Date / Time No Known Allergies Allergy Unknown Verified 07/19/21 22:20 Review of Systems Review of Systems: ROS unobtainable: Yes unobtainable due to mental status (Patient has baseline dementia) [facility] Past Medical History Medical History (Updated 07/20/21 @ 05:18 by Sandrita Henriquez DO) Dementia Depression Fracture of distal end of left fibula Fracture of proximal end of right humerus Hx of suicide attempt Hyperlipidemia Osteoporosis Surgical History Surgical History (Updated 07/20/21 @ 05:17 by Sandrita Henriquez DO) Hx of colonoscopy Intertrochanteric fracture of right hip (03/2020) Intramedullary screw Family History Family History (Updated 07/20/21 @ 05:27 by Sandrita Henriquez DO) Father Family history of malignant neoplasm Mother Family history of heart disease in male family member before age 55 Social History Social History (Updated 07/20/21 @ 05:25 by Sandrita Henriquez DO) Social History: The patient lives in her own home until fall in March 2020 at which time she was discharged to [facility] nursing [facility] where she has remained. Code status: DNR/DNI with intent for comfort based care Smoking status: Never smoker Alcohol intake: former Substance use: never Substance use type: does not use Gender identity (if verbalized by the patient): Female Spiritual care concerns: No Exam Narrative: GENERAL: Well-appearing, well-nourished, and in no acute distress. HEAD: Normocephalic, atraumatic. EYES: PERRLA and EOMI. ENT: Nares clear, no rhinorrhea or epistaxis. Mucous membranes moist. NECK: Supple. No masses. No JVD CHEST: Clear to auscultation. No respiratory distress. No wheezes rales or rhonchi HEART: Regular rate and rhythm. No murmur heard. Normal peripheral pulses. ABDOMEN: Soft, nontender, nondistended, normal active bowel sounds. EXTREMITIES: Normal range of motion. No edema. SKIN: Warm, dry, no rash. NEURO: No focal deficits. Alert and oriented x2, PSYCH: Normal mood and affect. Course Reevaluation(s) Reevaluation #1: work up and plan for admisison discussed with patient she is comfortable with inpatient hospitalization and IV abx Date: 07/20/21 Time: 00:51 Reevaluation #2: Patient resting comfortably blood pressure appears to be stable and fluid responsive Case discussed with hospitalist team who will admit for further management Date: 07/20/21 Time: 03:53 Consultations Consultation #1: POA return phone call after patient was admitted. POA was comfortable with the admission plan IV antibiotics and if the patient requires they were comfortable with pursuing central line and pressors. Hospitalist team made aware of POA conversation Date: 07/20/21 Time: 05:50 Vital Signs Vital signs: Vital Signs Temperature 37.1 C 07/19/21 22:01 Pulse Rate 81 07/19/21 22:01 Respiratory Rate 17 07/19/21 22:01 Blood Pressure 90/48 L 07/19/21 22:01 Pulse Oximetry
[2021-07-20 01:04] LABS: Lactic Acid Reflex 1.7 mmol/L (0.7-2.1)
[2021-07-20] MEDS: SODIUM CHLORIDE 0.9% IV 1,000 ML 999 ML IV CONT (01:40)
[2021-07-20] MEDS: SODIUM CHLORIDE 0.9% IV 500 ML 999 ML IV CONT (03:47)
--- NOTE | 2021-07-20 04:34 | ADMGEN ---
This patient, Nano Rojas, was admitted to IMU Room 205-02 at 0430. Patient/family oriented to hospital policies and general routines including ID bracelet, bed and alarms, visiting hours, pain management, procedures, bathroom and other care routines, personal items, smoking policy, room service/diet, and visiting hours. Information on how to activate the Rapid Response Team has been discussed. Patient/Family are encouraged to report perceived risks to care and to ask questions if they do not understand what they are told or what they should do.
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
[2021-07-20] MEDS: SODIUM CHLORIDE 0.9% IV 1,000 ML 125 ML IV CONT ×3 (05:43→21:21)
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
[2021-07-20] MEDS: SERTRALINE HCL 25 MG TABLET PO (10:25)
[2021-07-20] MEDS: ACETAMINOPHEN 500 MG TABLET PO (17:52)
[2021-07-20] MEDS: DONEPEZIL HCL 5 MG TABLET PO (21:21)
[2021-07-21] VITALS (12 sets, daily range): BP systolic 129–142; BP diastolic 68–78; PULSE 56–84; RESP 16–18; TEMP 36.2–37.1; O2SAT 96–100
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
[2021-07-21 05:17] LABS: Hematocrit 32.5 % (37.0-47.0); Hemoglobin 10.9 g/dL (12.0-15.0); Mean Corpuscular HGB Conc 33.5 g/dl (32-36); Mean Corpuscular Volume 89.5 fl (80-100); Mean Platelet Volume 9.9 fl (7.4-10.4); Platelet Count Result 154 k/mm3 (150-375); Red Blood Count 3.63 M/mm3 (4.2-5.4); White Blood Count 4.8 K/mm3 (4.5-10.0)
[2021-07-21 05:34] LABS: Anion Gap 6 mmol/L (8-16); Blood Urea Nitrogen 9 mg/dL (7-17); Calcium 8.2 mg/dL (8.4-10.2); Carbon Dioxide 21 mmol/L (22-30); Chloride 106 mmol/L (98-107); Estimated CRCL calculation 66 ml/min; Estimated Glomerular Filt Rate > 60; Glucose 89 mg/dL (65-110); Potassium 3.1 mmol/L (3.4-5.0); Sodium 133 mmol/L (137-145)
[2021-07-21] MEDS: SODIUM CHLORIDE 0.9% IV 1,000 ML 125 ML IV CONT ×2 (05:41→21:01)
[2021-07-21] MEDS: SERTRALINE HCL 25 MG TABLET PO (08:35)
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
--- NOTE | 2021-07-21 17:39 | PC.NURSE ---
This patient, Nano Rojas, was transferred to [ [facility]] on 07/21/21 at 1716. Personal belongings sent with patient. Report given to [ [facility]]. Appropriate documentation sent with patient.
--- NOTE | 2021-07-21 18:16 | PC.NURSE ---
This patient, Nano Rojas, was received from IMU on 07/21/21 at 1816. Patient/family oriented to unit policies and routines
[2021-07-21] MEDS: DONEPEZIL HCL 5 MG TABLET PO (21:00)
[2021-07-22] VITALS: BP 129/69; PULSE 64; RESP 16; TEMP 36; O2SAT 95
[2021-07-22] MEDS: SODIUM CHLORIDE 0.9% IV 1,000 ML 125 ML IV CONT (05:16)
[2021-07-22 05:37] LABS: Basophils Percent Auto 0.4 % (0.2-1.2); Eosinophils Absolute Auto 0.2 K/mm3 (0-0.3); Eosinophils Percent Auto 2.8 % (0-4.4); Hematocrit 33.4 % (37.0-47.0); Hemoglobin 11.2 g/dL (12.0-15.0); Immature Granulocyte Absolute 0.02 K/mm3 (0.00-0.031); Immature Granulocyte Percent A 0.4 % (0-0.5); Lymphocytes Absolute Auto 1.23 K/mm3 (0.9-3.2); Lymphocytes Percent Auto 21.7 % (18.3-44.2); Mean Corpuscular HGB Conc 33.5 g/dl (32-36); Mean Corpuscular Hemoglobin 29.9 pg (26-34); Mean Corpuscular Volume 89.1 fl (80-100); Mean Platelet Volume 9.8 fl (7.4-10.4); Monocytes Absolute Auto 0.5 K/mm3 (0.1-0.6); Monocytes Percent Auto 8.8 % (2.6-8.5); Neutrophils Absolute Auto 3.7 K/mm3 (1.3-6.7); Neutrophils Percent Auto 65.9 % (45.5-73.1); Platelet Count Result 171 k/mm3 (150-375); Red Blood Count 3.75 M/mm3 (4.2-5.4); White Blood Count 5.7 K/mm3 (4.5-10.0)
[2021-07-22 05:55] LABS: Anion Gap 6 mmol/L (8-16); Blood Urea Nitrogen 6 mg/dL (7-17); Calcium 8.3 mg/dL (8.4-10.2); Carbon Dioxide 22 mmol/L (22-30); Chloride 110 mmol/L (98-107); Estimated CRCL calculation 56 ml/min; Estimated Glomerular Filt Rate > 60; Glucose 92 mg/dL (65-110); Potassium 3.1 mmol/L (3.4-5.0); Sodium 138 mmol/L (137-145)
[2021-07-22] MEDS: SERTRALINE HCL 25 MG TABLET PO (08:18)
--- NOTE | 2021-07-22 09:36 | PM.DS ---
DS: Admitting Diagnosis Admitting Diagnosis (1) Bacteriuria with pyuria: Code(s): R82.71 - Bacteriuria; R82.81 - Pyuria Status: Acute Assessment and Plan: The patient could possibly have a UTI that could be worsening her symptoms of dimension, resulting in her low blood pressures. Patient been placed on empiric antibiotic therapy with Rocephin. Urine cultures are pending. (2) Hypotension (arterial): Qualifiers: Hypotension type: unspecified hypotension type Qualified Code(s): I95.9 - Hypotension, unspecified Code(s): I95.9 - Hypotension, unspecified Status: Acute Assessment and Plan: Resolved after IV fluid hydration. Continue maintenance IV fluids. (3) Leukocytosis: Qualifiers: Leukocytosis type: unspecified Qualified Code(s): D72.829 - Elevated white blood cell count, unspecified Code(s): D72.829 - Elevated white blood cell count, unspecified Status: Acute Assessment and Plan: Likely due to his suspected UTI. Repeat CBC in a.m. DS: Discharge Diagnosis Discharge Diagnosis (1) Bacteriuria with pyuria: Code(s): R82.71 - Bacteriuria; R82.81 - Pyuria Status: Acute (2) Hypotension (arterial): Qualifiers: Hypotension type: unspecified hypotension type Qualified Code(s): I95.9 - Hypotension, unspecified Code(s): I95.9 - Hypotension, unspecified Status: Acute (3) Acute UTI: Code(s): N39.0 - Urinary tract infection, site not specified Status: Acute (4) Leukocytosis: Qualifiers: Leukocytosis type: unspecified Qualified Code(s): D72.829 - Elevated white blood cell count, unspecified Code(s): D72.829 - Elevated white blood cell count, unspecified Status: Acute DS: Summary Hospital Course Reason for hospitalization: [facility] Hospital Course: 81-year-old female admitted to the hospital with acute mental status change, bacteriuria with pyuria and hypertension. Patient responded appropriately to IV resuscitation and IV antibiotic therapy new. Urine culture did not grow any bacteria however patient was treated at both [facility] prior to admission here at [facility]. Patient has a significant past medical history of major depressive disorder with suicidal attempt spanning greater than 20 years. Who with her diagnosis of Alzheimer's dementia patient is having psychotic features and additionally has decompensation of her major depressive disorder reporting to staff that she wanted to harm herself. Crisis was called to evaluate patient for possible inpatient Geriatric Psychiatric treatment, although they declined. Additionally, I have called and spoken to her POA (her [id number]) and her son. We discussed patient's poor quality of life at this point to with her visit hallucinations and paranoid persecutory thoughts. They are in agreement to start Zyprexa. They understand that there are risks associated with this drug class including but not limited to . After review of care and current state it is decided that the risk outweighed the benefits and I have been authorized to proceed with treatment. I have contacted her collection administrator and reviewed plan of care with her. Patient is discharged back to [facility] in medically stable condition. She may require ongoing up titration of Zyprexa in the outpatient setting. Status at Discharge Functional status at discharge: independent ambulation Overall status at discharge: patient is back to baseline Time Spent with Patient Time attestation: Total time spent providing and/or coordinating discharge services: Time spent: Greater than 30 minutes DS: Data Data Completed and Pending Labs on day of discharge: Labs from last 24 hours 07/22/21 07/22/21 05:14 05:14 WBC 5.7 RBC 3.75 L Hgb 11.2 L Hct 33.4 L MCV 89.1 MCH 29.9 MCHC 33.5 RDW 12.0 Plt Count 171 MPV 9.8 Immature G
[2021-07-22 10:00] VITALS: BP 115/58; PULSE 51; RESP 14; TEMP 36.7; O2SAT 100
[2021-07-22] MEDS: OLANZapine 2.5 MG TABLET PO (12:10)
--- NOTE | 2021-08-15 07:54 | P.AMEND_ITS ---
Record Amendment Report Amendment The family requests addendum to the records under social history. The patient actually lived in her own home until September 2019 at which time she moved to [facility]. She was then hospitalized in March of 2020 after a fall and was discharged to [facility] for rehab. She returned to [facility] May 2020. The above addendum was made to the patient's record by Dr. Sandrita Henriquez on 08/15/2021 at 0727. Original addendum is on the History & Physical from account [id number].
== END 2021-07-22 13:12 ==
LOC: ANHED 07-20 03:52 → ANH2MED 07-22 08:49 → ANHIMU 07-24 13:50
PROVIDERS: Admitting Provider Internal Medicine; Emergency Provider Emergency Medicine; PCP Student in an Organized Health Care Education/Training Program; Visit Provider Hospitalist
DX: N39.0 Urinary tract infection, site not specified (principal); I95.9 Hypotension, unspecified; R82.71 Bacteriuria; D72.829 Elevated white blood cell count, unspecified; R41.82 Altered mental status, unspecified; F03.90 Unspecified dementia, unspecified severity, without behavioral disturbance, psychotic disturbance, mood disturbance, and anxiety; F32.9 Major depressive disorder, single episode, unspecified; E78.5 Hyperlipidemia, unspecified; Z66 Do not resuscitate
CPT/HCPCS: 36415; 51701; 71046; 80048; 80053; 81001; 83605; 85025; 85027; 87086; 93005; 96361; 96365; 99285; A9270; G0378; J0696; J7030; J7040

== ENCOUNTER 2021-07-23 20:01 | Emergency (ER) | payer OTHER, MEDICAID, SELFPAY ==
--- NOTE | ~2021-07-23 | XR_ITS ---
EXAMINATION: XR chest 2V DATE: 07/23/2021 22:44 INDICATION: Altered mental status. TECHNIQUE: Frontal and lateral views of the chest were obtained. COMPARISON: Chest 2 views 07/20/2021, CT abdomen and pelvis 07/23/2021 FINDINGS: There is mild scarring at the lung apices. There is mild atelectasis in the lower lung zone s. There are small pleural effusions. No pneumothorax. The heart size is normal. There is a healing/h ealed fracture of proximal right humerus. IMPRESSION: 1. Stable small pleural effusions. 2. Mild atelectasis in the lower lung zones and mild scarring at the lung apices. Reviewed, dictated and finalized at location A. IMPRESSION: 1. Stable small pleural effusions. 2. Mild atelectasis in the lower lung zones and mild scarring at the lung apice s.
--- NOTE | ~2021-07-23 | CT_ITS ---
EXAMINATION: CT abdomen pelvis w con DATE: 07/23/2021 22:43 INDICATION: Generalized abdominal pain. TECHNIQUE: Computed tomography (CT) of the abdomen and pelvis was performed with 100 mL Omnipaque 350 intravenous contrast. Automated exposure control and iterative reconstruction technique were employe d. The dose-length product was 355.49 mGy-cm. COMPARISON: None. FINDINGS: The visualized portions of the lung bases demonstrate mild atelectasis. There are small ple ural effusions. There are small bilateral posterior diaphragmatic hernias containing fat. The heart s ize is normal. No pericardial effusion. The liver is normal. There is a gallstone in the gallbladder, which is normal in size. Calcifications in the spleen are consistent with old granulomatous disease. The pancreas and adrenal glands are normal. There are cysts in the kidneys measuring up to 3.5 cm on the right. There is diverticulosis of the colon without evidence of diverticulitis. The appendix is not visualized. There are no pathologically enlarged lymph nodes. There is no free intraperitoneal fl uid. There is a lipoma in the right iliopsoas muscle. There is internal fixation of proximal right fe mur. There is lumbar dextrocurvature and severe spondylosis. IMPRESSION: 1. Small pleural effusions. 2. Cholelithiasis. No evidence of acute cholecystitis. Reviewed, dictated and finalized at location A.
[2021-07-23 20:00] VITALS: BP 146/81; PULSE 72; RESP 18; TEMP 37.4; O2SAT 97
--- NOTE | 2021-07-23 21:20 | ED.GENADULT ---
HPI - General Adult General Chief complaint: Altered Mental Status Stated complaint: confusion Time Seen by Provider: 07/23/21 21:01 History of Present Illness HPI narrative: Patient is an 81-year-old female who presents ER with increased confusion. Patient has known history of dementia and takes donepezil. At this time patient only complains of lower abdominal pain bilateral lower quadrants left being worse than the right. Denies radiation of the pain. Denies urinary symptoms. Related Data Home Medications Medication Instructions Recorded Confirmed donepezil 5 mg PO HS 04/15/20 07/19/21 pravastatin 40 mg PO HS 04/15/20 07/19/21 sertraline 25 mg PO DAILY 04/15/20 07/19/21 ergocalciferol (vitamin D2) 1,250 1,250 mcg PO WEEKLY 05/23/20 07/19/21 mcg (50,000 unit) capsule acetaminophen 500 mg PO QID PRN 07/19/21 07/19/21 olanzapine mg 07/23/21 Allergies Allergy/AdvReac Type Severity Reaction Status Date / Time No Known Allergies Allergy Unknown Verified 07/23/21 20:16 Review of Systems Review of Systems: ROS unobtainable: Yes unobtainable due to mental status PMFSH Past Medical History Medical History (Updated 07/24/21 @ 04:16 by Anand Holder MD) Dementia Depression Fracture of distal end of left fibula Fracture of proximal end of right humerus Hx of suicide attempt Hyperlipidemia Osteoporosis Surgical History Surgical History (Updated 07/20/21 @ 05:17 by Sandrita Henriquez DO) Hx of colonoscopy Intertrochanteric fracture of right hip (03/2020) Intramedullary screw Family History Family History (Updated 07/20/21 @ 05:27 by Sandrita Henriquez DO) Father Family history of malignant neoplasm Mother Family history of heart disease in male family member before age 55 Social History Social History Social History: The patient lives in her own home until fall in March 2020 at which time she was discharged to longterm facility for rehab and then transition to [facility]. Code status: DNR/DNI with intent for comfort based care but the family would be okay with central line, pressors and or BiPAP if needed. Smoking status: Never smoker Alcohol intake: former Substance use: never Substance use type: does not use Gender identity (if verbalized by the patient): Female Spiritual care concerns: No Exam Narrative: GENERAL: Well-appearing, well-nourished, and in no acute distress. HEAD: Normocephalic, atraumatic. ENT: Mucous membranes moist. CHEST: Clear to auscultation. No respiratory distress. HEART: Regular rate and rhythm. Normal peripheral pulses. ABDOMEN: Soft, moderate tenderness to palpation bilateral lower quadrants left greater than right without guarding, nondistended. EXTREMITIES: Normal range of motion. No edema. SKIN: Warm, dry, no rash. NEURO: Alert and oriented x1. Course Course Emergency Course: Patient seems to be at normal baseline as she is chronically demented. No evidence of infection. Patient recently discharged from the hospital. She has been treated for UTI recently is also been evaluated a [facility]. Patient's potassium has been replaced will prescribe outpatient potassium and recommend follow-up with the [facility] physician. Vital Signs Vital signs: Vital Signs Temperature 99.3 F 07/23/21 20:00 Pulse Rate 72 07/23/21 20:00 Respiratory Rate 18 07/23/21 20:00 Blood Pressure 146/81 H 07/23/21 20:00 Pulse Oximetry 97 07/23/21 20:00 Temperature 99.3 F 07/23/21 20:00 Pulse Rate 62 07/24/21 03:04 Respiratory Rate 18 07/24/21 03:04 Blood Pressure 126/66 07/24/21 03:04 Pulse Oximetry 96 07/24/21 03:04 Medical Decision Making Vital Signs Vital Signs: Vital Signs Temperature 99.3 F 07/23/21 20:00 Pulse Rate 72 07/23/21 20:00 Respiratory Rate 18 07/23/21 20:00 Blood Pressure 146/81 H 07/23/21
[2021-07-23 22:07] LABS: Basophils Percent Auto 0.4 % (0.2-1.2); Eosinophils Absolute Auto 0.2 K/mm3 (0-0.3); Eosinophils Percent Auto 3.1 % (0-4.4); Hematocrit 33.9 % (37.0-47.0); Hemoglobin 11.3 g/dL (12.0-15.0); Immature Granulocyte Absolute 0.01 K/mm3 (0.00-0.031); Immature Granulocyte Percent A 0.1 % (0-0.5); Lymphocytes Absolute Auto 1.97 K/mm3 (0.9-3.2); Lymphocytes Percent Auto 28.8 % (18.3-44.2); Mean Corpuscular HGB Conc 33.3 g/dl (32-36); Mean Corpuscular Hemoglobin 29.5 pg (26-34); Mean Corpuscular Volume 88.5 fl (80-100); Mean Platelet Volume 9.8 fl (7.4-10.4); Monocytes Absolute Auto 0.6 K/mm3 (0.1-0.6); Monocytes Percent Auto 8.6 % (2.6-8.5); Platelet Count Result 227 k/mm3 (150-375); Red Blood Count 3.83 M/mm3 (4.2-5.4); Red Cell Distribution Width 11.9 % (11.5-14.5); White Blood Count 6.8 K/mm3 (4.5-10.0)
[2021-07-23 22:14] LABS: Add Urine Microscopic? NO; Appearance Urine Clear (Clear); Bilirubin Urine Negative (Negative); Blood Urine Negative (Negative); Color Urine Yellow (Yellow); Glucose Urine UA Negative (Negative); Ketones Urine Negative (Negative); Leukocyte Esterase Ur Negative LEU/UL (Negative); Nitrate Urine Negative (Negative); Protein Urine Negative (Negative); Specific Grav Ur 1.008 (1.001-1.035); Urobilinogen Urine Negative mg/dL (<2.0)
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
[2021-07-23 22:21] LABS: Anion Gap 5 mmol/L (8-16); Blood Urea Nitrogen 7 mg/dL (7-17); Calcium 9.2 mg/dL (8.4-10.2); Carbon Dioxide 30 mmol/L (22-30); Chloride 106 mmol/L (98-107); Estimated CRCL calculation 61 ml/min; Estimated Glomerular Filt Rate > 60; Glucose 109 mg/dL (65-110); Potassium 2.7 mmol/L (3.4-5.0); Sodium 141 mmol/L (137-145)
--- NOTE | 2021-07-23 22:28 | ECG_ITS ---
Measurements Intervals [place] Rate: 77 P: 56 ND: 161 QRS: 37 QRSD: 97 T: 27 QT: 420 QTc: 478 Interpretive Statements SINUS RHYTHM ATRIAL TRIPLET INCOMPLETE RIGHT BUNDLE BRANCH BLOCK NONSPECIFIC ST & T-WAVE ABNORMALITY- ANT/INF LEADS ABNORMAL ECG Electronically Signed On 07-24-2021 6:18:33 CDT by Oliver Watson D.O.
[2021-07-23] MEDS: POTASSIUM CHLORIDE 20 MEQ TABLET 40 MEQ PO (22:50)
--- NOTE | 2021-07-23 23:31 | PC.NURSE ---
Report given to JOSAFAT Quinones.
[2021-07-24 00:13] VITALS: BP 159/83; PULSE 68; RESP 15; O2SAT 97
[2021-07-24 03:04] VITALS: BP 126/66; PULSE 62; RESP 18; O2SAT 96
[2021-07-24 04:03] LABS: Anion Gap 2 mmol/L (8-16); Blood Urea Nitrogen 4 mg/dL (7-17); Calcium 8.8 mg/dL (8.4-10.2); Carbon Dioxide 29 mmol/L (22-30); Chloride 106 mmol/L (98-107); Estimated CRCL calculation 72 ml/min; Estimated Glomerular Filt Rate > 60; Glucose 117 mg/dL (65-110); Potassium 3.7 mmol/L (3.4-5.0); Sodium 137 mmol/L (137-145)
--- NOTE | 2021-07-24 04:27 | PC.NURSE ---
Ayaka, pt SAMANTHA, calling for update. updated her. no other questions at this time.
[2021-07-24 06:08] VITALS: BP 141/59; PULSE 63; RESP 21; O2SAT 98
== END 2021-07-24 06:08 ==
PROVIDERS: Emergency Provider Emergency Medicine; PCP Student in an Organized Health Care Education/Training Program
DX: E87.6 Hypokalemia (principal); F03.90 Unspecified dementia, unspecified severity, without behavioral disturbance, psychotic disturbance, mood disturbance, and anxiety; F32.9 Major depressive disorder, single episode, unspecified; E78.5 Hyperlipidemia, unspecified; M81.0 Age-related osteoporosis without current pathological fracture; Z66 Do not resuscitate; I45.10 Unspecified right bundle-branch block; R94.31 Abnormal electrocardiogram [ECG] [EKG]; K80.20 Calculus of gallbladder without cholecystitis without obstruction
CPT/HCPCS: 36415; 71046; 74177; 80048; 81003; 85025; 93005; 96365; 96366; 99284; A9270; J3480; Q9967